=== PATIENT | male | born 1940 | race Caucasian/White ===

== ENCOUNTER 2017-10-06 23:36 | Inpatient (IN) | payer MEDICARE, OTHER ==
[2017-10-07] MEDS ORDERED: HEPARIN SODIUM,PORCINE 5,000 UNIT/ML 1 ML VIAL IV ONE (00:04)
[2017-10-07] MEDS ORDERED: HEPARIN SOD,PORK IN 0.45% NACL 25,000 UNIT in 0.45% NACL 1 500ML.BAG IV SCH (00:15)
[2017-10-07 00:32] LABS: Basophils % (A) 0 %; Eosinophils % (A) 0 %; HCT 46.7 % (39.0-53.0); HGB 15.6 gm/dL (13.0-17.5); Lymphocytes # (A) 2.4 k/uL (1.0-4.8); Lymphocytes % (A) 14 %; MCH 30.9 pg (25.0-35.0); MCHC 33.4 g/dL (31.0-37.0); MCV 92.4 fL (80.0-100.0); Mean Platelet Volume 7.1; Monocytes # (A) 1.1 k/uL (0-1.0); Monocytes % (A) 7 %; Neutrophils # (A) 12.8 k/uL (1.3-7.7); Neutrophils % (A) 77 %; Platelet Count 226 k/uL (150-450); RBC 5.06 m/uL (4.30-5.90); RDW 14.1 % (11.5-15.5); WBC 16.6 k/uL (3.8-10.6)
[2017-10-07 00:48] LABS: Partial Thromboplastin Time 22.6 sec (22.0-30.0); Prothrombin Time 10.1 sec (9.0-12.0)
[2017-10-07 00:53] LABS: Albumin 4.1 g/dL (3.5-5.0); Magnesium 1.8 mg/dL (1.6-2.3); Potassium 4.1 mmol/L (3.5-5.1); Total Bilirubin 0.4 mg/dL (0.2-1.3); Total Protein 6.7 g/dL (6.3-8.2)
[2017-10-07 01:02] LABS: Theophylline 31.7 ug/mL
[2017-10-07] MEDS: DILTIAZEM 50 MG in SODIUM CHLORIDE 0.9% 40 ML IV SCH ×4 (01:03→12:58)
[2017-10-07 01:22] LABS: Troponin I 0.07 ng/mL (0.000-0.034)
[2017-10-07] MEDS ORDERED: NALOXONE 0.4 MG/ML 1 ML VIAL IV PRN (01:28)
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
[2017-10-07] MEDS ORDERED: HYDROcodone/APAP 10-325MG 1 EACH TAB PO PRN (02:15)
[2017-10-07 02:35] VITALS: BMI 30.4
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
[2017-10-07 05:45] LABS: Glucose,Whole Blood 125 mg/dL (75-99)
[2017-10-07 06:46] LABS: ALT 36 U/L (21-72); AST 28 U/L (17-59); Albumin 3.5 g/dL (3.5-5.0); Alkaline Phosphatase 58 U/L (38-126); Anion Gap 3 mmol/L; Blood Urea Nitrogen 24 mg/dL (9-20); Calcium 9.4 mg/dL (8.4-10.2); Carbon Dioxide 27 mmol/L (22-30); Chloride 108 mmol/L (98-107); Glucose 110 mg/dL (74-99); Sodium 138 mmol/L (137-145); Total Bilirubin 0.5 mg/dL (0.2-1.3); Total Protein 5.8 g/dL (6.3-8.2)
[2017-10-07 06:47] LABS: Theophylline 19.9 ug/mL
[2017-10-07 07:02] LABS: Creatine Kinase MB 5.6 ng/mL (0.0-2.4)
[2017-10-07 07:03] LABS: Troponin I 0.08 ng/mL (0.000-0.034)
[2017-10-07] MEDS: HEPARIN SODIUM,PORCINE 5,000 UNIT/ML 1 ML VIAL IV PRN ×2 (07:56→15:33)
[2017-10-07] MEDS: FAMOTIDINE 20 MG TAB PO SCH ×2 (07:57→19:42)
[2017-10-07] MEDS: DOXYCYCLINE MONOHYDRATE 100 MG CAPSULE PO SCH ×2 (07:57→19:42)
[2017-10-07] MEDS: SENNOSIDES-DOCUSATE SODIUM 1 EACH TAB PO SCH ×2 (07:57→19:43)
[2017-10-07] MEDS: TAMSULOSIN 0.4 MG CAP.ER.24H PO SCH (07:57)
[2017-10-07] MEDS ORDERED: predniSONE 10 MG TAB PO SCH (09:00)
[2017-10-07 10:15] LABS: Appearance,Urine Clear (Clear); Bilirubin,Urine Negative (Negative); Blood,Urine Negative (Negative); Color,Urine Yellow; Glucose,Urine (UA) Negative (Negative); Ketones,Urine Negative (Negative); Leukocyte Esterase,Urine Negative (Negative); Nitrite,Urine Negative (Negative); PH, Urine 5.5 (5.0-8.0); Protein,Urine Negative (Negative); Specific Gravity,Urine 1.021 (1.001-1.035); Urobilinogen,Urine <2.0 mg/dL (<2.0)
[2017-10-07] MEDS ORDERED: ALBUTEROL NEBULIZED 2.5 MG/3 ML INHALATION PRN (10:44)
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
[2017-10-07] MEDS: IPRATROPIUM-ALBUTEROL 3 ML NEB INHALATION SCH ×3 (11:35→19:23)
[2017-10-07 11:54] LABS: Glucose,Whole Blood 165 mg/dL (75-99)
[2017-10-07 12:37] LABS: Creatine Kinase MB 5.3 ng/mL (0.0-2.4); Troponin I 0.063 ng/mL (0.000-0.034)
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
--- NOTE | 2017-10-07 12:57 | ECHOF ---
Referral Reason:Afib w RVr MEASUREMENTS -------- HEIGHT: 185.4 cm WEIGHT: 101.6 kg BP: IVSd: 1.1 cm (0.6 - 1.1) LVIDd: 4.3 cm (3.9 - 5.3) LVPWd: 1.2 cm (0.6 - 1.1) EDV(Teich): 83 ml IVSs: 1.2 cm LVIDs: 2.9 cm LVPWs: 1.1 cm %IVS Thck: 11 % ESV(Teich): 33 ml EF(Teich): 60 % %FS: 32 % SV(Teich): 50 ml LA Diam: 3.3 cm (2.7 - 3.8) RVIDd: 3.4 cm (< 3.3) Ao Diam: 3.6 cm (2.0 - 3.7) LA Diam: 3.5 cm (2.7 - 3.8) EPSS: 0.8 cm MV E Alexis: 0.82 m/s MV DecT: 100 ms MV Dec [place]: 8.3 m/s MV A Alexis: 0.55 m/s MV E/A Ratio: 1.50 MV PHT: 29 ms AV Vmax: 1.36 m/s AV maxP.42 mmHg TR Vmax: 1.74 m/s TR maxP.09 mmHg RAP: 5.00 mmHg RVSP: 17.09 mmHg MV EF SLOPE: 278.49 mm/s (70 - 150) MV EXCURSION: 30.37 mm (> 18.000) FINDINGS -------- Undetermined rhythm. LV size, wall thickness and systolic function are normal, with an EF greater than 55%. The left maryellen tricular size is normal. The right ventricle is moderately enlarged. The left atrial size is normal. The right atrial size is normal. 5.0mg OF [place] UTLIZED: 2 OR MORE WALL SEGMENTS NOT VISUALIZED. Mild mitral annular calcification present. Mild mitral regurgitation is present. Trace tricuspid regurgitation present. There is no evidence of pulmonary hypertension. The right ventricular systolic pressure, as measured by Doppler, is 17.09mmHg. The pulmonic valve was not well visualized. The aortic root size is normal. There is no pericardial effusion. CONCLUSIONS -------- 1. LV size, wall thickness and systolic function are normal, with an EF greater than 55%. 2. The left ventricular size is normal. 3. The right ventricle is moderately enlarged. 4. The left atrial size is normal. 5. The right atrial size is normal. 6. 5.0mg OF [place] UTLIZED: 2 OR MORE WALL SEGMENTS NOT VISUALIZED. 7. Mild mitral annular calcification present. 8. Mild mitral regurgitation is present. 9. Trace tricuspid regurgitation present. 10. There is no evidence of pulmonary hypertension. 11. The right ventricular systolic pressure, as measured by Doppler, is 17.09mmHg. 12. The pulmonic valve was not well visualized. 13. The aortic root size is normal. 14. There is no pericardial effusion. BUSINESS PROCESS ARCHITECT: Kisha Parry RDCS
[2017-10-07] MEDS: MORPHINE SULFATE ER 30 MG TABLET PO SCH ×2 (13:01→19:42)
[2017-10-07] MEDS ORDERED: PROPAFENONE 150 MG TAB PO STA (14:42)
[2017-10-07] MEDS: DILTIAZEM ORAL 60 MG TAB PO SCH ×2 (15:35→21:15)
--- NOTE | 2017-10-07 16:02 | P.PN ---
Progress Note - Text Progress Note Date: 10/07/17 Hospitalist Interval Note Patient seen and examined at bedside. Breathing much better. No chest pain. Was unable to feel palpitations yesterday. Had a sore throat and neck yesterday but this resolved today. Vital signs reviewed General: non toxic, no distress, appears at stated age Derm: warm, dry Head: atraumatic, normocephalic, symmetric Eyes: EOMI, no lid lag, anicteric sclera Mouth: no lip lesion, mucus membranes moist Cardiovascular: S1-S2 regular, no murmur, positive posterior tibial pulse bilateral, Lungs: Faint expiratory wheezing bilateral, decreased air intake, no rhonchi, no rales , no accessory muscle use Abdominal: soft, nontender to palpation, no guarding, no appreciable organomegaly Ext: no gross muscle atrophy, no edema, no contractures Neuro: CN II-XI grossly intact, no focal neuro deficits Psych: Alert, oriented, appropriate affect Assessment/Plan: Newly discovered Atrial fibrillation with rapid ventricular response -Currently on Cardizem drip and heparin -Anticipate transition to novel anticoagulant cardiology is in agreement -Just had to go up on Cardizem drip but hope to transition to oral Cardizem today which heart rate is controlled -Cardiology consultation -Echocardiogram Acute exacerbation of COPD with elevated theophylline level -Oral steroids, doxycycline, bronchodilators -Consult pulmonary -Hold theophylline Type 2 diabetes mellitus -Diet controlled at home -We will check BMP in a.m. and if sugars are elevated start sliding scale insulin -Hemoglobin A1c GERD -Pepcid Dyslipidemia -Lipitor This is an update note for patient , for full note on 10/07 see H and P by Dr. Galloway. There is no charge associated with this note.
[2017-10-07 17:01] LABS: Glucose,Whole Blood 206 mg/dL (75-99)
[2017-10-07] MEDS: INSULIN ASPART 100 UNIT/ML 1 ML 10 ML VIAL SQ SCH ×2 (17:42→20:38)
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
[2017-10-07] MEDS: SYMBICORT 160-4.5 MCG INHALER INHALATION SCH (19:58)
[2017-10-07 20:34] LABS: Glucose,Whole Blood 78 mg/dL (75-99)
[2017-10-07] MEDS: APIXABAN 5 MG TAB PO SCH (20:56)
[2017-10-07] MEDS ORDERED: ATORVASTATIN 40 MG TAB PO SCH (21:00)
[2017-10-07 22:51] LABS: Hemoglobin A1C 6.5 % (4.0-6.0)
[2017-10-07 23:32] VITALS: RESP 16
[2017-10-08 06:12] LABS: Glucose,Whole Blood 109 mg/dL (75-99)
[2017-10-08] MEDS: INSULIN ASPART 100 UNIT/ML 1 ML 10 ML VIAL SQ SCH (06:14)
[2017-10-08 06:25] LABS: Basophils % (A) 0 %; Eosinophils # (A) 0.1 k/uL (0-0.7); Eosinophils % (A) 1 %; HCT 45.9 % (39.0-53.0); HGB 14.9 gm/dL (13.0-17.5); Lymphocytes # (A) 2.7 k/uL (1.0-4.8); Lymphocytes % (A) 28 %; MCH 30.5 pg (25.0-35.0); MCHC 32.6 g/dL (31.0-37.0); MCV 93.6 fL (80.0-100.0); Monocytes # (A) 0.9 k/uL (0-1.0); Monocytes % (A) 9 %; Neutrophils # (A) 5.8 k/uL (1.3-7.7); Neutrophils % (A) 60 %; Platelet Count 229 k/uL (150-450); RDW 14.3 % (11.5-15.5); WBC 9.7 k/uL (3.8-10.6)
[2017-10-08 06:39] LABS: Albumin 3.3 g/dL (3.5-5.0); Calcium 9.7 mg/dL (8.4-10.2); Potassium 4.5 mmol/L (3.5-5.1); Theophylline 3.3 ug/mL; Total Bilirubin 0.3 mg/dL (0.2-1.3); Total Protein 5.7 g/dL (6.3-8.2)
[2017-10-08] MEDS: DILTIAZEM ORAL 60 MG TAB PO SCH (07:44)
[2017-10-08] MEDS: APIXABAN 5 MG TAB PO SCH (07:44)
[2017-10-08] MEDS: SENNOSIDES-DOCUSATE SODIUM 1 EACH TAB PO SCH (07:44)
[2017-10-08] MEDS: DOXYCYCLINE MONOHYDRATE 100 MG CAPSULE PO SCH (07:45)
[2017-10-08] MEDS: FAMOTIDINE 20 MG TAB PO SCH (07:45)
[2017-10-08] MEDS: MORPHINE SULFATE ER 30 MG TABLET PO SCH (07:45)
[2017-10-08] MEDS: TAMSULOSIN 0.4 MG CAP.ER.24H PO SCH (07:46)
[2017-10-08] MEDS: IPRATROPIUM-ALBUTEROL 3 ML NEB INHALATION SCH ×2 (08:03→11:51)
[2017-10-08] MEDS: SYMBICORT 160-4.5 MCG INHALER INHALATION SCH (08:04)
[2017-10-08] MEDS ORDERED: predniSONE 20 MG TAB PO SCH (09:00)
[2017-10-08] MEDS ORDERED: FLECAINIDE 50 MG TAB PO SCH (09:15)
[2017-10-08] MEDS ORDERED: DILTIAZEM CD 120 MG CAP.ER.24H PO STA (09:54)
[2017-10-08 11:38] VITALS: BP 126/66; TEMP 98
[2017-10-08 11:40] LABS: Glucose,Whole Blood 163 mg/dL (75-99)
[2017-10-08 11:57] VITALS: PULSE 88
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
--- NOTE | 2017-10-08 20:25 | P.DS ---
Providers Date of admission: 10/07/17 01:32 Expected date of discharge: 10/08/17 Attending physician: Stas Galloway MD Consults: 10/07/17 01:31 Consult Physician Urgent Consulting Provider: [facility] Consult Reason/Comments: new afib with RVR Do you want consulting provider notified?: Yes, Notify in am 10/07/17 03:19 Consult Physician Routine Consulting Provider: Lasha Vázquez Consult Reason/Comments: COPD/ theophyline toxicity Do you want consulting provider notified?: Yes, Notify in am Primary care physician: Stated None Hospital Course: Discharge Diagnosis: Newly discovered atrial fibrillation with rapid ventricular response-currently in normal sinus rhythm Acute exacerbation of COPD Theophylline toxicity Type 2 diabetes mellitus, diet controlled GERD Dyslipidemia Hospital Course: is a 77-year-old male for history of COPD, GERD, and dyslipidemia who presented as a transfer from [facility] for evaluation of A. fib with RVR. He went to the [place] to ref[place] inhaler prescription was told that he had a fast heart rate and instructed to go to the ER. In [place] he was initially thought to have SVT and was given a dose of adenosine. It then appeared that he had A. fib with RVR. He was started on a Cardizem drip. It was noted that his theophylline level was supratherapeutic at 31.7. On arrival here he was noted to have an elevated white blood cell count and elevated heart rate of 140s. His Cardizem drip was maintained and he was started on a heparin drip. He had a slightly elevated troponin which was felt to be due to stress-induced ischemia. He was admitted to the selective care unit when seen by cardiology. His Cardizem drip was converted to oral Cardizem and he received 1 dose of Rythmol. He then converted to normal sinus rhythm. His heparin drip was transitioned to Eliquis 5 mg twice daily. By the morning of 10/08 his A. fib with RVR was completely resolved. His shortness of breath was at baseline for him. He was determined stable for discharge by cardiology. He was also seen by pulmonary here and they recommended decreasing his theophylline to 200 mg daily due to his supratherapeutic level. He has an appointment with the [place] in the morning and refer to get his medications from them. I have sent over prescriptions to nikole [facility] for his Cardizem and prednisone. I have asked him to [facility] his flecainide, Eiquis, new theophylline prescription, and cardizem prescriptions. He has already received doses of these medications today prior to discharge. Patient seen and examined at bedside. No chest pain, shortness of breath, or throat pain. Feeling much better. Requesting to go home. Vital signs reviewed and stable. General: non toxic, no distress, appears at stated age Derm: warm, dry Head: atraumatic, normocephalic, symmetric Eyes: EOMI, no lid lag, anicteric sclera Mouth: no lip lesion, mucus membranes moist Cardiovascular: S1S2 reg, no murmur, positive posterior tibial pulse bilateral, Lungs: Faint Wheezing bilateral bases, no rhonchi, no rales , no accessory muscle use Abdominal: soft, nontender to palpation, no guarding, no appreciable organomegaly Ext: no gross muscle atrophy, no edema, no contractures Neuro: CN II-XI grossly intact, no focal neuro deficits Psych: Alert, oriented, appropriate affect A total of 35 minutes of time were spent preparing this complex discharge summary . Pertinent Studies: Echocardiogram ejection fraction 55% Patient Condition at Discharge: Stable Plan - Discharge Summary New Discharge Prescriptions: New Apixaban [Eliquis] 5 mg PO BID tab Diltiazem Cd [Cardizem Cd] 180 mg PO DAILY #15 cap.er.24h Flecainide [Tambocor] 50 mg PO Q12HR tab predniSONE 40 mg PO DAILY #10 tab Theophylline 24 Hour [Deni-24] 200 mg PO DAILY #30 cap.er.24h Continue Tamsulosin HCl [Flomax] 0.4 mg PO DAILY Ergocalciferol (Vitamin D2) [Vitamin D2] 50,000 unit PO DAILY Famotidine [Pepcid] 20 mg PO BID HYDROcodone/APAP 10-325MG [[place] 10-325] 1 tab PO Q6HR PRN PRN Reason: Pain Doxycycline Hyclate [Vibramycin] 100 mg PO BID Albuterol Sulfate [Proair Hfa] 2 puff INHALATION RT-QID PRN PRN Reason: Shortness Of Breath Tiotropium Br/Olodaterol HCl [Stiolto Respimat Inhal [place]] 2 spray INHALATION RT-DAILY Morphine Sulfate ER [Ms Contin] 60 mg PO HS Morphine Sulfate ER [Ms Contin] 15 mg PO QAM Mometasone Furoate [Asmanex Hfa] 1 puff INHALATION RT-HS Simvastatin 40 mg PO HS Docusate [Colace] 100 mg PO DAILY Discontinued predniSONE 10 mg PO BID Theophylline 24 Hour [Deni-24] 400 mg PO DAILY Discharge Medication List Albuterol Sulfate [Proair Hfa] 2 puff INHALATION RT-QID PRN 10/07/17 [History] Docusate [Colace] 100 mg PO DAILY 10/07/17 [History] Doxycycline Hyclate [Vibramycin] 100 mg PO BID 10/07/17 [History] Ergocalciferol (Vitamin D2) [Vitamin D2] 50,000 unit PO DAILY 10/07/17 [History] Famotidine [Pepcid] 20 mg PO BID 10/07/17 [History] HYDROcodone/APAP 10-325MG [[place] 10-325] 1 tab PO Q6HR PRN 10/07/17 [History] Mometasone Furoate [Asmanex Hfa] 1 puff INHALATION RT-HS 10/07/17 [History] Morphine Sulfate ER [Ms Contin] 15 mg PO QAM 10/07/17 [History] Morphine Sulfate ER [Ms Contin] 60 mg PO HS 10/07/17 [History] Simvastatin 40 mg PO HS 10/07/17 [History] Tamsulosin HCl [Flomax] 0.4 mg PO DAILY 10/07/17 [History] Tiotropium Br/Olodaterol HCl [Stiolto Respimat Inhal [place]] 2 spray INHALATION RT-DAILY 10/07/17 [History] Apixaban [Eliquis] 5 mg PO BID tab 10/08/17 [Rx] Diltiazem Cd [Cardizem Cd] 180 mg PO DAILY #15 cap.er.24h 10/08/17 [Rx] Flecainide [Tambocor] 50 mg PO Q12HR tab 10/08/17 [Rx] Theophylline 24 Hour [Deni-24] 200 mg PO DAILY #30 cap.er.24h 10/08/17 [Rx] predniSONE 40 mg PO DAILY #10 tab 10/08/17 [Rx] Follow up Appointment(s)/Referral(s): None,Stated [Primary Care Provider] - 1-2 days Patient Instructions/Handouts: Theophylline (By mouth), Apixaban (By mouth), A- fib (Atrial Fibrillation) (GEN), COPD (Chronic Obstructive Pulmonary Disease) ( GEN), Leukocytosis (GEN) Activity/Diet/Wound Care/Special Instructions: [facility] [place] He will need the following new prescriptions. Flecainide 50 mg twice daily, Cardizem CD 180 mg daily, theophylline 200 mg daily, and Eliquis 5mg twice daily. During you hospitalization you developed atrial fibrillation with rapid ventricular response. There are also found have acute exacerbation of COPD. I would recommend getting home health care set up through the [facility] for frequent monitoring at this point in time. Heart healthy diet, activity as tolerated Discharge Disposition: HOME SELF-CARE
--- NOTE | 2017-10-12 11:28 | CDI ---
Last Revision, January 2017 Documentation Clarification Form Date: 10/12/17 From: Leatha Tawanda Erika Devlin, Dry Cell Assembly Supervisor Hours-8:30 am & 5 pm -FMRN: [id number] Admit Date: 10/07/2017 1:32:00 AM Patient Name: Mike Sampson Visit Number: [id number] Discharge Date: 10/08/17 ATTENTION: The Clinical Documentation Specialists (CDI) and [facility] Coding Staff appreciate your assistance in clarifying documentation. Please respond to the clarification below the line at the bottom and electronically sign. The CDI & [facility] Coding staff will review the response and follow-up if needed. Please note: Queries are made part of the Legal Health Record. If you have any questions, please contact the author of this message via ITS. Dr. ENCISO, Liliam Francisco MD New onset of atrial fibrillation is documented in the ED note, H&P, consult, PNs & DS. History/Risk Factors: COPD, GERD, hyperlipidemia EKG/telemetry: Atrial fibrillation with rapid ventricular response Treatment: Diltiazem drip, heparin IV drip at discharge transitioned to Eliquis 5 mg BID In your professional opinion, can you please clarify the type of atrial fibrillation, if known? Chronic/Permanent Paroxysmal Persistent Other, please specify Unable to determine Please continue to document in your progress notes and discharge summary in order to capture severity of illness and risk of mortality. Include clinical findings that support your diagnosis. MTDD
--- NOTE | 2017-10-12 11:31 | CDI ---
Last Revision, January 2017 Documentation Clarification Form Date: 10/12/17 From: Leatha Tawanda Erika Devlin, Correctional Security Officer Hours-8:30 am & 5 pm [place] Admit Date: 10/07/2017 1:32:00 AM Patient Name: Mike Sampson Visit Number: [id number] Discharge Date: 10/08/17 ATTENTION: The Clinical Documentation Specialists (CDI) and [facility] Coding Staff appreciate your assistance in clarifying documentation. Please respond to the clarification below the line at the bottom and electronically sign. The CDI & [facility] Coding staff will review the response and follow-up if needed. Please note: Queries are made part of the Legal Health Record. If you have any questions, please contact the author of this message via ITS. Liliam Mosquera MD Atrial Flutter is documented in your consult. History/Risk Factors: COPD, GERD, hyperlipidemia EKG/telemetry: Atrial fibrillation with rapid ventricular response Treatment: Diltiazem drip, heparin IV drip at discharge transitioned to Eliquis 5 mg BID In your professional opinion, in order to capture the severity of condition; can you please clarify the type of atrial flutter if known? Typical/Type I Atypical/Type II Other, please specify Unable to determine Please continue to document in your progress notes and discharge summary in order to capture severity of illness and risk of mortality. Include clinical findings that support your diagnosis. MTDD
[2017-10-13] MEDS ORDERED: ERGOCALCIFEROL 50,000 UNIT CAP PO SCH (09:00)
== END 2017-10-08 12:58 | disposition home or self-care (01) | DRG 309 ==
LOC: EC 23:36 → 6SEL 10-07 01:32
PROVIDERS: ADMIT Family Medicine; ATTEND Family Medicine
DX: I48.91 Unspecified atrial fibrillation (principal); J44.1 Chronic obstructive pulmonary disease with (acute) exacerbation; I24.8 Other forms of acute ischemic heart disease; I48.92 Unspecified atrial flutter; T48.6X5A Adverse effect of antiasthmatics, initial encounter; E11.9 Type 2 diabetes mellitus without complications; E78.5 Hyperlipidemia, unspecified; K21.9 Gastro-esophageal reflux disease without esophagitis; G89.29 Other chronic pain; R10.2 Pelvic and perineal pain; T59.811A Toxic effect of smoke, accidental (unintentional), initial encounter; N42.9 Disorder of prostate, unspecified; F17.210 Nicotine dependence, cigarettes, uncomplicated; Z71.6 Tobacco abuse counseling; Z79.899 Other long term (current) drug therapy; Z79.891 Long term (current) use of opiate analgesic; Z79.52 Long term (current) use of systemic steroids; Z91.048 Other nonmedicinal substance allergy status
CPT/HCPCS: 36415; 71046; 80053; 80198; 81003; 82550; 82553; 83036; 83735; 83880; 84443; 84484; 85025; 85610; 85730; 87040; 87086; 93005; 93306; 94640; 96365; 96368; 96376; 99285

== ENCOUNTER 2018-10-20 20:03 | Inpatient (IN) | payer MEDICARE ==
[2018-10-20 22:01] LABS: Glucose,Whole Blood 163 mg/dL (75-99)
[2018-10-20] MEDS: IPRATROPIUM-ALBUTEROL 3 ML NEB INHALATION SCH (22:21)
[2018-10-20] MEDS: IPRATROPIUM-ALBUTEROL 3 ML NEB INHALATION PRN (22:30)
[2018-10-21] MEDS: methylPREDNISolone SOD SUCCI 125 MG/2 ML VIAL IV SCH ×4 (00:26→23:08)
[2018-10-21] MEDS: IPRATROPIUM-ALBUTEROL 3 ML NEB INHALATION SCH ×7 (00:40→23:23)
[2018-10-21] MEDS: SODIUM CHLORIDE 0.9% 1,000 ML IV SCH ×2 (00:45→12:42)
[2018-10-21 06:50] LABS: Glucose,Whole Blood 173 mg/dL (75-99)
[2018-10-21] MEDS: metFORMIN 500 MG TAB PO SCH ×2 (06:57→17:29)
[2018-10-21 07:42] LABS: HCT 44.4 % (39.0-53.0); HGB 14.6 gm/dL (13.0-17.5); MCH 29.7 pg (25.0-35.0); MCHC 32.8 g/dL (31.0-37.0); MCV 90.4 fL (80.0-100.0); Mean Platelet Volume 7.4; Platelet Count 252 k/uL (150-450); RBC 4.91 m/uL (4.30-5.90); RDW 14.4 % (11.5-15.5); WBC 14.9 k/uL (3.8-10.6)
[2018-10-21] MEDS: THEOPHYLLINE 24 HOUR 400 MG CAP.ER.24H PO SCH (08:00)
[2018-10-21] MEDS: POTASSIUM CHLORIDE ER 10 MEQ TAB.ER.PRT PO SCH (08:00)
[2018-10-21] MEDS: MORPHINE SULFATE ER 15 MG TABLET PO SCH (08:01)
[2018-10-21] MEDS: MIDODRINE 5 MG TAB PO SCH ×2 (08:01→17:29)
[2018-10-21] MEDS: METOPROLOL TARTRATE 50 MG TAB PO SCH ×2 (08:01→21:20)
[2018-10-21] MEDS: TAMSULOSIN 0.4 MG CAP.ER.24H PO SCH (08:01)
[2018-10-21] MEDS: DOXYCYCLINE 100 MG in SODIUM CHLORIDE 0.9% 100 ML IVPB SCH ×2 (08:16→21:21)
[2018-10-21 08:22] LABS: ALT 20 U/L (21-72); AST 20 U/L (17-59); African American GFR (CKD) >90 (>60 ml/min/1.73 sqM); Alkaline Phosphatase 90 U/L (38-126); Anion Gap 13 mmol/L; Blood Urea Nitrogen 19 mg/dL (9-20); Calcium 9.8 mg/dL (8.4-10.2); Carbon Dioxide 25 mmol/L (22-30); Chloride 101 mmol/L (98-107); Glucose 175 mg/dL (74-99); Potassium 4.3 mmol/L (3.5-5.1); Sodium 139 mmol/L (137-145); Total Bilirubin 0.6 mg/dL (0.2-1.3); Total Protein 7.2 g/dL (6.3-8.2)
[2018-10-21] MEDS ORDERED: metFORMIN 500 MG TAB PO SCH (09:00)
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
[2018-10-21] MEDS: IPRATROPIUM-ALBUTEROL 3 ML NEB INHALATION PRN (10:30)
--- NOTE | 2018-10-21 11:54 | P.CNPUL ---
History of Present Illness Consult date: 10/21/18 Requesting physician: Adam Mg Reason for consult: dyspnea, COPD Chief complaint: Acute exacerbation of COPD History of present illness: This is a 78-year-old white male patient who follows with the [facility], with past medical history of advanced COPD, oxygen dependent, usually on 3 L of oxygen per nasal cannula, right and ongoing history of smoking, currently down to 1 pack a day from 2 packs a day for 63 years, history of atrial fibrillation, currently in sinus rhythm, GERD/reflux, hyperlipidemia, prostate disorder, diabetes mellitus, who resides in an adult foster care facility, who came into the emergency department at [facility] for evaluation of increasing shortness of breath, denied any cough, denied any fever or chills, denied any chest pain, or hemoptysis. Patient states he was previously in hospice for 8 months however recently was discharged from hospice, he was then placed in the adult foster fpc where he resided with several other residents and was not happy with the conditions there. He then decided to leave there and he had stayed in his car for over 24 hours before he came into the emergency department. From [facility] she was transferred to [facility], chest x-ray this morning shows chronic parenchymal changes bilaterally without any suspicious new focal airspace opacity, no pleural effusion or pneumothorax, blood fragments in the left upper chest stable from previous x-ray. Lab work this morning showed a white blood cell count of 14.9, hemoglobin of 14.6, electrolytes and renal profile within normal limits, proBNP was 714, patient is currently sinus rhythm on the monitor. His maintenance med ications include Singulair, and theophylline, I don't see any inhalers or nebulized treatments on his home med list although patient states he is on nebulized treatments which he has been compliant with. His goal exam reveals a overweight male, in mild to moderate amount of respiratory distress, patient has conversational dyspnea, lung sounds are tight and wheezy, patient is currently on 5 L of oxygen. we re consulted for elevation patient shortness of breath. We had previously seen the patient in consultation earlier this month, however patient did not follow-up in outpatient setting Review of Systems All systems: negative Constitutional: Denies chills, Denies fever Eyes: denies blurred vision, denies pain Ears, nose, mouth and throat: Denies headache, Denies sore throat Cardiovascular: Denies chest pain, Denies shortness of breath Respiratory: Reports dyspnea, Reports home oxygen, Reports respiratory infections, Reports wheezing, Denies cough Gastrointestinal: Denies abdominal pain, Denies diarrhea, Denies nausea, Denies vomiting Musculoskeletal: Denies myalgias Integumentary: Denies pruritus, Denies rash Neurological: Denies numbness, Denies weakness Psychiatric: Denies anxiety, Denies depression Endocrine: Denies fatigue, Denies weight change Past Medical History Past Medical History: COPD, GERD/Reflux, Hyperlipidemia, Prostate Disorder Additional Past Medical History / Comment(s): chronic pelvic pain History of Any Multi-Drug Resistant Organisms: None Reported Past Surgical History: No Surgical Hx Reported Past Anesthesia/Blood Transfusion Reactions: No Reported Reaction Past Psychological History: No Psychological Hx Reported Smoking Status: Current every day smoker Past Alcohol Use History: None Reported Past Drug Use History: None Reported Medications and Allergies Home Medications Medication Instructions Recorded Confirmed Type Morphine Sulfate ER [Ms Contin] 15 mg PO [facility] 10/07/17 10/20/18 History Morphine Sulfate ER [Ms Contin] 60 mg PO 10/07/17 10/20/18 History Tamsulosin HCl [Flomax] 0.4 mg PO DAILY 10/07/17 10/20/18 History Metoprolol Tartrate [Lopressor] 50 mg PO BID 10/20/18 10/20/18 History Midodrine [ProAmatine] 5 mg PO BID 10/20/18 10/20/18 History Montelukast [Singulair] 10 mg PO 10/20/18 10/20/18 History Potassium Chloride [K-Tab ER] 10 meq PO DAILY 10/20/18 10/20/18 History Theophylline 24 Hour [Deni-24] 800 mg PO DAILY 10/20/18 10/20/18 History metFORMIN HCL 500 mg PO BID 10/20/18 10/20/18 History Allergies Allergy/AdvReac Type Severity Reaction Status Date / Time mold Allergy Itching Verified 10/07/17 12:42 Physical Exam Vitals: Vital Signs Temp Pulse Pulse Resp BP Pulse Ox 10/21/18 11:14 97.8 F 64 20 102/51 97 10/21/18 10:44 68 10/21/18 10:30 68 10/21/18 07:53 98.1 F 78 18 141/72 96 10/21/18 07:46 72 10/21/18 07:34 68 10/21/18 04:56 64 10/21/18 04:43 60 10/21/18 04:00 77 21 134/62 94 L 10/21/18 00:53 68 10/21/18 00:40 65 94 L 10/21/18 00:00 98.5 F 69 20 122/65 95 10/20/18 22:32 72 10/20/18 22:21 70 10/20/18 21:31 99 F 70 20 146/65 97 Intake and Output 10/20/18 10/21/18 10/21/18 22:59 06:59 14:59 Output Total 300 500 Balance -300 -500 Output: Urine 300 500 Other: Weight 113.4 kg GENERAL EXAM: Alert, 78-year-old obese white male, on 5 L of oxygen, who has conversational dyspnea, comfortable in no apparent distress. HEAD: Normocephalic/atraumatic. EYES: Normal reaction of pupils, equal size. Conjunctiva pink, sclera white. NOSE: Clear with pink turbinates. THROAT: No erythema or exudates. NECK: No masses, no JVD, no thyroid enlargement, no adenopathy. CHEST: No chest wall deformity. Symmetrical expansion. LUNGS: Equal air entry with diffuse wheezes CVS: Regular rate and rhythm, normal S1 and S2, no gallops, no murmurs, no rubs ABDOMEN: Soft, nontender. No hepatosplenomegaly, normal bowel sounds, no guarding or rigidity. EXTREMITIES: No clubbing, mild edema in lower extremities, no cyanosis, 2+ pulses and upper and lower extremities. MUSCULOSKELETAL: Muscle strength and tone normal. SPINE: No scoliosis or deformity SKIN: No rashes CENTRAL NERVOUS SYSTEM: Alert and oriented -3. No focal deficits, tone is normal in all 4 extremities. PSYCHIATRIC: Alert and oriented -3. Appropriate affect. Intact judgment and insight. Results - Laboratory Findings CBC and BMP: 10/21/18 06:26 10/21/18 06:26 Abnormal lab findings: Abnormal Labs 10/20/18 10/21/18 10/21/18 22:00 06:26 06:26 WBC 14.9 H Glucose 175 H POC Glucose (mg/dL) 163 H ALT 20 L 10/21/18 06:48 WBC Glucose POC Glucose (mg/dL) 173 H ALT - Diagnostic Findings Chest x-ray: report reviewed, image reviewed Assessment and Plan Plan: Assessment: #1. Acute exacerbation of COPD, chest x-ray was negative for any acute pulmonary findings #2. History of A. fib, currently in sinus rhythm, not on any anticoagulation #3. History of COPD, severity of which is unknown, oxygen dependent, patient failed to follow-up in outpatient setting #4. Diabetes mellitus type 2 #5. Chronic and ongoing nicotine dependence, currently down to 1 pack a day, previously smoked 2 packs a day for 63 years #6. Obesity #7. Diabetes mellitus Plan: We'll continue with current medical treatment, will add Pulmicort and Perforomist, continue DuoNeb [id number], continue IV Solu-Medrol, doxycycline, chest x-ray has been reviewed showing no acute findings, we'll treat the patient for COPD exacerbation, nicotine cessation counseling was done. We'll continue to follow and make further recommendations, patient is currently in sinus rhythm. Will likely need to consult social work as the patient decided to leave the assisted care facility and was living in his car for 24 hours I performed a history & physical examination of the patient and discussed their management with my nurse practitioner, Yanci Arteaga. I reviewed the nurse practitioner's note and agree with the documented findings and plan of care. Lung sounds are positive for diffuse wheezes. The findings and the impression was discussed with the patient. I attest to the documentation by the nurse practitioner. Time with Patient: Greater than 30
[2018-10-21] MEDS: ALPRAZolam 0.25 MG TAB PO PRN ×2 (12:07→21:20)
[2018-10-21 12:15] LABS: Glucose,Whole Blood 182 mg/dL (75-99)
--- NOTE | 2018-10-21 16:31 | P.HPIM ---
History of Present Illness H&P Date: 10/21/18 Chief Complaint: Shortness of breath Patient is a 78 old male with a known history of advanced COPD, hyperlipidemia, GERD and nicotine addiction, chronic hypoxic respiratory failure on home oxygen at 3 L nasal cannula was initially presents to [facility] due to worsen ing shortness of breath. Patient does have chronic cough without any sputum production. Denied any fever or chills. No complaints of chest pain. Patient states he was previously in hospice for 8 months however recently was discharged from hospice, he was then placed in the adult foster correction where he resided with several other residents and was not happy with the conditions there. He then decided to leave there and he had stayed in his car for over 24 hours before he came into the emergency department. Patient was transferred to [facility] for further evaluation by pulmonary. Patient has not seen any physician recently. Chest x-ray showed chronic parenchymal changes bilaterally without any infiltrate. BNP 714 Review of Systems Constitutional: Patient denies any fever or chills . No generalized weakness or weight loss. Abdomen: Patient denied nausea vomiting and diarrhea and abdominal pain. Cardiovascular: Patient denies any chest pain or short of breath no palpitations. Respiratory: . Cough without sputum production. Shortness of breath. Neurologic: Patient denied any numbness or tingling headache. Musculoskeletal: Patient denies any complaints of joint swelling or deformity. Skin: Negative Psychiatric: Negative Endocrine: No heat or cold intolerance. No recent weight gain. Genitourinary: No dysuria or hematuria. All other 14 point ROS negative except the above Past Medical History Past Medical History: COPD, GERD/Reflux, Hyperlipidemia, Prostate Disorder Additional Past Medical History / Comment(s): chronic pelvic pain History of Any Multi-Drug Resistant Organisms: None Reported Past Surgical History: No Surgical Hx Reported Past Anesthesia/Blood Transfusion Reactions: No Reported Reaction Past Psychological History: No Psychological Hx Reported Smoking Status: Current every day smoker Past Alcohol Use History: None Reported Past Drug Use History: None Reported Medications and Allergies Home Medications Medication Instructions Recorded Confirmed Type Morphine Sulfate ER [Ms Contin] 15 mg PO QAM 10/07/17 10/20/18 History Morphine Sulfate ER [Ms Contin] 60 mg PO HS 10/07/17 10/20/18 History Tamsulosin HCl [Flomax] 0.4 mg PO DAILY 10/07/17 10/20/18 History Metoprolol Tartrate [Lopressor] 50 mg PO BID 10/20/18 10/20/18 History Midodrine [ProAmatine] 5 mg PO BID 10/20/18 10/20/18 History Montelukast [Singulair] 10 mg PO HS 10/20/18 10/20/18 History Potassium Chloride [K-Tab ER] 10 meq PO DAILY 10/20/18 10/20/18 History Theophylline 24 Hour [Deni-24] 800 mg PO DAILY 10/20/18 10/20/18 History metFORMIN HCL 500 mg PO BID 10/20/18 10/20/18 History Allergies Allergy/AdvReac Type Severity Reaction Status Date / Time mold Allergy Itching Verified 10/07/17 12:42 Physical Exam Vitals: Vital Signs Temp Pulse Pulse Resp BP Pulse Ox 10/21/18 11:14 97.8 F 64 20 102/51 97 10/21/18 10:44 68 10/21/18 10:30 68 10/21/18 07:53 98.1 F 78 18 141/72 96 10/21/18 07:46 72 10/21/18 07:34 68 10/21/18 04:56 64 10/21/18 04:43 60 10/21/18 04:00 77 21 134/62 94 L 10/21/18 00:53 68 10/21/18 00:40 65 94 L 10/21/18 00:00 98.5 F 69 20 122/65 95 10/20/18 22:32 72 10/20/18 22:21 70 10/20/18 21:31 99 F 70 20 146/65 97 Intake and Output 10/20/18 10/21/18 10/21/18 22:59 06:59 14:59 Output Total 300 500 Balance -300 -500 Output: Urine 300 500 Other: Weight 113.4 kg PHYSICAL EXAMINATION: Patient is lying in the bed comfortably, mild distress, awake alert and oriented.. HEENT: Normocephalic. Neck is supple. Pupils reactive. Nostrils clear. Oral cavity is moist. Ears reveal no drainage. Neck reveals no JVD, carotid bruits, or thyromegaly. CHEST EXAMINATION: Trachea is central. Symmetrical expansion. Diminished air entry and diffuse wheezing. CARDIAC: Normal S1, S2 with no gallops. No murmurs ABDOMEN: Soft. Bowel sounds normal. No organomegaly. No abdominal bruits. Extremities: reveal no edema. No clubbing or cyanosis Neurologically awake, alert, oriented x3 with well-coordinated movements. No focal deficits noted Skin: No rash or skin lesions. Psychiatric: Coperative. Nonsuicidal Musculoskeletal: No joint swelling or deformity. Normal range of motion. Results CBC & Chem 7: 10/21/18 06:26 10/21/18 06:26 Labs: Abnormal Lab Results - Last 24 Hours (Table) 10/20/18 10/21/18 10/21/18 Range/Units 22:00 06:26 06:26 WBC 14.9 H (3.8-10.6) k/uL Glucose 175 H (74-99) mg/dL POC Glucose (mg/dL) 163 H (75-99) mg/dL ALT 20 L (21-72) U/L 10/21/18 Range/Units 06:48 WBC (3.8-10.6) k/uL Glucose (74-99) mg/dL POC Glucose (mg/dL) 173 H (75-99) mg/dL ALT (21-72) U/L Thrombosis Risk Factor Assmnt - DVT/VTE Prophylaxis DVT/VTE Prophylaxis: Pharmacologic Prophylaxis ordered - Choose All That Apply Each Risk Factor Represents 3 Points: Age 75 years or older Thrombosis Risk Factor Assessment Total Risk Factor Score: 3 Thrombosis Risk Factor Assessment Level: Moderate Risk Assessment and Plan Assessment: Acute exacerbation of COPD Advanced COPD on home oxygen dependent. Was on hospice care previously Chronic hypoxic respiratory failure on home oxygen Diabetes type 2 [id number] Atrial fibrillation paroxysmal not on anticoagulation Ongoing nicotine addiction Obesity with BMI 33.9 DVT prophylaxis with heparin subcu Plan: Patient be continued on IV steroids, DuoNeb's, Pulmicort/Perforomist and oxygen therapy as needed. Continue with antibiotics in the form of doxycycline. Pulmonary is on board. Smoking cessation has been counseled extensively. Prognosis is guarded with multiple medical problems and, conditions. dry house worker be consulted for placement to assisted care facility. Time with Patient: Greater than 30
[2018-10-21 16:50] LABS: Glucose,Whole Blood 137 mg/dL (75-99)
[2018-10-21] MEDS: FORMOTEROL FUMARATE 20 MCG/2 ML NEBU INHALATION SCH ×2 (18:58→19:09)
[2018-10-21] MEDS: BUDESONIDE 1 MG/2 ML NEBU INHALATION SCH ×2 (18:59→19:09)
[2018-10-21 20:40] LABS: Glucose,Whole Blood 127 mg/dL (75-99)
[2018-10-21] MEDS ORDERED: MORPHINE SULFATE ER 60 MG TABLET PO SCH (21:00)
[2018-10-21] MEDS: MONTELUKAST 10 MG TAB PO SCH (21:20)
[2018-10-21] MEDS: MORPHINE SULFATE ER 30 MG TABLET PO SCH (22:13)
[2018-10-21] MEDS: MELATONIN 5 MG TABLET PO SCH (23:08)
[2018-10-21] MEDS: HEPARIN SODIUM,PORCINE 5,000 UNIT/ML 1 ML VIAL SQ SCH (23:08)
[2018-10-22] MEDS: IPRATROPIUM-ALBUTEROL 3 ML NEB INHALATION SCH ×6 (03:40→23:26)
[2018-10-22 06:34] LABS: Glucose,Whole Blood 186 mg/dL (75-99)
[2018-10-22] MEDS: metFORMIN 500 MG TAB PO SCH ×2 (07:09→17:10)
[2018-10-22] MEDS: FORMOTEROL FUMARATE 20 MCG/2 ML NEBU INHALATION SCH ×2 (07:54→19:07)
[2018-10-22] MEDS: BUDESONIDE 1 MG/2 ML NEBU INHALATION SCH ×2 (07:54→19:07)
[2018-10-22] MEDS: MORPHINE SULFATE ER 15 MG TABLET PO SCH (08:14)
[2018-10-22] MEDS: POTASSIUM CHLORIDE ER 10 MEQ TAB.ER.PRT PO SCH (08:15)
[2018-10-22] MEDS: METOPROLOL TARTRATE 50 MG TAB PO SCH ×2 (08:15→20:12)
[2018-10-22] MEDS: MIDODRINE 5 MG TAB PO SCH ×2 (08:15→17:09)
[2018-10-22] MEDS: THEOPHYLLINE 24 HOUR 400 MG CAP.ER.24H PO SCH (08:15)
[2018-10-22] MEDS: HEPARIN SODIUM,PORCINE 5,000 UNIT/ML 1 ML VIAL SQ SCH ×3 (08:15→20:08)
[2018-10-22] MEDS: TAMSULOSIN 0.4 MG CAP.ER.24H PO SCH (08:15)
[2018-10-22] MEDS: methylPREDNISolone SOD SUCCI 125 MG/2 ML VIAL IV SCH ×3 (08:15→23:01)
[2018-10-22] MEDS: DOXYCYCLINE 100 MG in SODIUM CHLORIDE 0.9% 100 ML IVPB SCH ×2 (09:24→20:07)
[2018-10-22] MEDS ORDERED: CALCIUM CARBONATE 500 MG CHEWABLE PO PRN (10:41)
[2018-10-22 12:09] LABS: Glucose,Whole Blood 123 mg/dL (75-99)
[2018-10-22] MEDS ORDERED: ONDANSETRON 4 MG/2 ML VIAL IVP PRN (12:16)
--- NOTE | 2018-10-22 13:58 | P.PN ---
Subjective Progress Note Date: 10/22/18 Principal diagnosis: Exacerbation of COPD This is a 78-year-old white male patient who follows with the [facility], with past medical history of advanced COPD, oxygen dependent, usually on 3 L of oxygen per nasal cannula, right and ongoing history of smoking, currently down to 1 pack a day from 2 packs a day for 63 years, history of atrial fibrillation, currently in sinus rhythm, GERD/reflux, hyperlipidemia, prostate disorder, diabetes mellitus, who resides in an adult foster care facility, who came into the emergency department at [facility] for evaluation of increasing shortness of breath, denied any cough, denied any fever or chills, denied any chest pain, or hemoptysis. Patient states he was previously in hospice for 8 months however recently was discharged from hospice, he was then [facility] in [facility] adult foster [facility] where he resided with several other residents and was not happy with the conditions there. He then decided to leave there and he had stayed in his car for over 24 hours before he came into the emergency department. From [facility] she was transferred to [facility], chest x-ray this morning shows chronic parenchymal changes bilaterally without any suspicious new focal airspace opacity, no pleural e ffusion or pneumothorax, blood fragments in the left upper chest stable from previous x-ray. Lab work this morning showed a white blood cell count of 14.9, hemoglobin of 14.6, electrolytes and renal profile within normal limits, proBNP was 714, patient is currently sinus rhythm on the monitor. His maintenance medications include Singulair, and theophylline, I don't see any inhalers or nebulized treatments on his home med list although patient states he is on nebulized treatments which he has been compliant with. His goal exam reveals a overweight male, in mild to moderate amount of respiratory distress, patient has conversational dyspnea, lung sounds are tight and wheezy, patient is currently on 5 L of oxygen. we re consulted for elevation patient shortness of breath. We had previously seen the patient in consultation earlier this month, however patient did not follow-up in outpatient setting On 10/22/2018 patient is seen in follow-up on selective care unit, he sitting up in the chair, in no acute distress, and they have 5 L of oxygen with a pulse ox of 96%, he is afebrile, his breathing easier, less panic with spastic and congested on today's exam compared to yesterday, less tachypneic. No fever or chills, denies able to produce a sputum specimen for us. Continues on nebulized bronchodilators, IV steroids, she started to respond to inpatient treatments. Objective - Vital Signs Vital signs: Vital Signs Temp 96.9 F L 10/22/18 11:42 Pulse 49 L 10/22/18 11:42 Resp 20 10/22/18 11:42 BP 106/56 10/22/18 11:42 Pulse Ox 96 10/22/18 11:42 Intake & Output 10/21/18 10/22/18 10/22/18 18:59 06:59 18:59 Intake Total 460 450 Output Total 700 1100 275 Balance -240 -1100 175 Weight 112.3 kg Intake: Oral 460 450 Output: Urine 700 1100 275 Other: # Voids 1 1 - Exam GENERAL EXAM: Alert, 78-year-old obese white male, on 5 L of oxygen, who has mild dyspnea, comfortable in no apparent distress. HEAD: Normocephalic/atraumatic. EYES: Normal reaction of pupils, equal size. Conjunctiva pink, sclera white. NOSE: Clear with pink turbinates. THROAT: No erythema or exudates. NECK: No masses, no JVD, no thyroid enlargement, no adenopathy. CHEST: No chest wall deformity. Symmetrical expansion. LUNGS: Equal air entry with diffuse wheezes CVS: Regular rate and rhythm, normal S1 and S2, no gallops, no murmurs, no rubs ABDOMEN: Soft, nontender. No hepatosplenomegaly, normal bowel sounds, no guarding or rigidity. EXTREMITIES: No clubbing, mild edema in lower extremities, no cyanosis, 2+ pulses and upper and lower extremities. MUSCULOSKELETAL: Muscle strength and tone normal. SPINE: No scoliosis or deformity SKIN: No rashes CENTRAL NERVOUS SYSTEM: Alert and oriented -3. No focal deficits, tone is normal in all 4 extremities. PSYCHIATRIC: Alert and oriented -3. Appropriate affect. Intact judgment and insight. - Labs CBC & Chem 7: 10/21/18 06:26 10/21/18 06:26 Labs: Abnormal Lab Results - Last 24 Hours (Table) 10/21/18 10/21/18 10/22/18 Range/Units 16:47 20:37 06:33 POC Glucose (mg/dL) 137 H 127 H 186 H (75-99) mg/dL 10/22/18 Range/Units 12:07 POC Glucose (mg/dL) 123 H (75-99) mg/dL Assessment and Plan Plan: Assessment: #1. Acute exacerbation of COPD, chest x-ray was negative for any acute pulmonary findings #2. History of A. fib, currently in sinus rhythm, not on any anticoagulation #3. History of COPD, severity of which is unknown, oxygen dependent, patient failed to follow-up in outpatient setting #4. Diabetes mellitus type 2 #5. Chronic and ongoing nicotine dependence, currently down to 1 pack a day, previously smoked 2 packs a day for 63 years #6. Obesity #7. Diabetes mellitus Plan: We'll continue current inpatient treatments, IV steroids, on nebulized bronchodilators, Pulmicort and Perforomist, continue empiric antibiotics, patient is improving, breathing easier today, still bronchospastic and short of breath, but appears to be improving, not quite back to baseline, and continue with current treatment I performed a history & physical examination of the patient and discussed their management with my nurse practitioner, Yanci Arteaga. I reviewed the nurse practitioner's note and agree with the documented findings and plan of care. Lung sounds are positive for diffuse wheezes. The findings and the impression was discussed with the patient. I attest to the documentation by the nurse practitioner. Time with Patient: Less than 30
[2018-10-22] MEDS: ALPRAZolam 0.25 MG TAB PO PRN ×2 (15:56→21:22)
[2018-10-22 16:48] LABS: Glucose,Whole Blood 148 mg/dL (75-99)
[2018-10-22] MEDS: MELATONIN 5 MG TABLET PO SCH (20:06)
[2018-10-22] MEDS: MONTELUKAST 10 MG TAB PO SCH (20:06)
[2018-10-22] MEDS: traZODone HCL 50 MG TAB PO PRN (20:07)
[2018-10-22] MEDS: FAMOTIDINE 20 MG TAB PO SCH (20:07)
[2018-10-22] MEDS: MORPHINE SULFATE ER 30 MG TABLET PO SCH (20:08)
[2018-10-22 21:01] LABS: Glucose,Whole Blood 177 mg/dL (75-99)
--- NOTE | 2018-10-22 21:53 | P.PN ---
Subjective Progress Note Date: 10/22/18 Principal diagnosis: Acute COPD exacerbation Patient is a 78 old male with a known history of advanced COPD, hyperlipidemia, GERD and nicotine addiction, chronic hypoxic respiratory failure on home oxygen at 3 L nasal cannula was initially presents to [facility] due to wo rsening shortness of breath. Patient does have chronic cough without any sputum production. Denied any fever or chills. No complaints of chest pain. Patient states he was previously in hospice for 8 months however recently was discharged from hospice, he was then placed in the adult foster half-way where he resided with several other residents and was not happy with the conditions there. He then decided to leave there and he had stayed in his car for over 24 hours before he came into the emergency department. Patient was transferred to [facility] for further evaluation by nigel ramirez. Patient has not seen any physician recently. Chest x-ray showed chronic parenchymal changes bilaterally without any infiltrate. BNP 714 10/22/2018 Patient says that his breathing is better today. Currently lying in the recliner comfortably. Saturating well on nasal cannula. Otherwise patient is being converted on steroids and breathing treatments and antibiotics. Pulmonary is following. Social work is on board for possible placement. Current medications reviewed. Objective - Vital Signs Vital signs: Vital Signs Temp 98 F 10/22/18 15:59 Pulse 55 L 10/22/18 19:26 Resp 20 10/22/18 15:59 BP 103/57 10/22/18 15:59 Pulse Ox 96 10/22/18 15:59 Intake & Output 10/22/18 10/22/18 10/23/18 06:59 18:59 06:59 Intake Total 550 Output Total 1100 275 Balance -1100 275 Weight 112.3 kg Intake: Intake, IV Titration 100 Amount Doxycycline 100 mg In 100 Sodium Chloride 0.9% 100 ml @ 100 mls/hr IVPB Q12HR SUMAN Rx#:[id number] Oral 450 Output: Urine 1100 275 Other: # Voids 1 - Exam PHYSICAL EXAMINATION: Patient is lying in the bed comfortably, no acute distress, awake alert and oriented.. HEENT: Normocephalic. Neck is supple. Pupils reactive. Nostrils clear. Oral cavity is moist. Ears reveal no drainage. Neck reveals no JVD, carotid bruits, or thyromegaly. CHEST EXAMINATION: Trachea is central. Symmetrical expansion. Bilateral air entry improved. Expiratory wheezing and scattered rhonchi.. CARDIAC: Normal S1, S2 with no gallops. No murmurs ABDOMEN: Soft. Bowel sounds normal. No organomegaly. No abdominal bruits. Extremities: reveal no edema. No clubbing or cyanosis Neurologically awake, alert, oriented x3 with well-coordinated movements. No focal deficits noted Skin: No rash or skin lesions. Psychiatric: Coperative. Nonsuicidal Musculoskeletal: No joint swelling or deformity. Normal range of motion. - Labs CBC & Chem 7: 10/21/18 06:26 10/21/18 06:26 Labs: Abnormal Lab Results - Last 24 Hours (Table) 10/22/18 10/22/18 10/22/18 Range/Units 06:33 12:07 16:47 POC Glucose (mg/dL) 186 H 123 H 148 H (75-99) mg/dL 10/22/18 Range/Units 20:52 POC Glucose (mg/dL) 177 H (75-99) mg/dL Assessment and Plan Assessment: Acute exacerbation of COPD Advanced COPD on home oxygen dependent. Was on hospice care previously Chronic hypoxic respiratory failure on home oxygen Diabetes type 2 [id number] Atrial fibrillation paroxysmal not on anticoagulation Ongoing nicotine addiction Obesity with BMI 33.9 DVT prophylaxis with heparin subcu Plan: Patient be continued on IV steroids, DuoNeb's, Pulmicort/Perforomist and oxygen therapy as needed. Continue with antibiotics in the form of doxycycline. Pulmonary is on board. Smoking cessation has been counseled extensively. Prognosis is guarded with multiple medical problems and, conditions. drug worker be consulted for placement to assisted care facility. Time with Patient: Greater than 30
[2018-10-23] MEDS: IPRATROPIUM-ALBUTEROL 3 ML NEB INHALATION SCH ×6 (03:02→23:27)
[2018-10-23 06:46] LABS: Glucose,Whole Blood 144 mg/dL (75-99)
[2018-10-23] MEDS: metFORMIN 500 MG TAB PO SCH ×2 (06:49→18:12)
[2018-10-23] MEDS: BUDESONIDE 1 MG/2 ML NEBU INHALATION SCH ×2 (06:50→19:39)
[2018-10-23] MEDS: FORMOTEROL FUMARATE 20 MCG/2 ML NEBU INHALATION SCH ×2 (06:50→19:39)
[2018-10-23] MEDS: MIDODRINE 5 MG TAB PO SCH ×2 (10:58→18:12)
[2018-10-23] MEDS: POLYETHYLENE GLYCOL 3350 17 GM POWD.PACK PO SCH (10:58)
[2018-10-23] MEDS: MORPHINE SULFATE ER 15 MG TABLET PO SCH (10:58)
[2018-10-23] MEDS: METOPROLOL TARTRATE 50 MG TAB PO SCH ×2 (10:58→21:36)
[2018-10-23] MEDS: THEOPHYLLINE 24 HOUR 400 MG CAP.ER.24H PO SCH (10:58)
[2018-10-23] MEDS: ISOSORBIDE MONONITRATE ER 30 MG TAB.ER.24H PO SCH (10:58)
[2018-10-23] MEDS: FAMOTIDINE 20 MG TAB PO SCH ×2 (10:59→21:36)
[2018-10-23] MEDS: POTASSIUM CHLORIDE ER 10 MEQ TAB.ER.PRT PO SCH (10:59)
[2018-10-23] MEDS: MAGNESIUM HYDROXIDE 2,400 MG/10 ML CUP PO SCH (10:59)
[2018-10-23] MEDS: TAMSULOSIN 0.4 MG CAP.ER.24H PO SCH (10:59)
[2018-10-23] MEDS: methylPREDNISolone SOD SUCCI 125 MG/2 ML VIAL IV SCH ×2 (11:00→18:11)
[2018-10-23] MEDS: FUROSEMIDE 40 MG TAB PO SCH (11:00)
[2018-10-23] MEDS: HEPARIN SODIUM,PORCINE 5,000 UNIT/ML 1 ML VIAL SQ SCH ×2 (11:00→18:11)
[2018-10-23] MEDS: DOCUSATE 100 MG CAP PO SCH (11:00)
[2018-10-23 11:44] LABS: Glucose,Whole Blood 129 mg/dL (75-99)
--- NOTE | 2018-10-23 12:08 | P.PN ---
Subjective Progress Note Date: 10/23/18 Principal diagnosis: Exacerbation of COPD This is a 78-year-old white male patient who follows with the [facility], with past medical history of advanced COPD, oxygen dependent, usually on 3 L of oxygen per nasal cannula, right and ongoing history of smoking, currently down to 1 pack a day from 2 packs a day for 63 years, history of atrial fibrillation, currently in sinus rhythm, GERD/reflux, hyperlipidemia, prostate disorder, diabetes mellitus, who resides in an adult foster care facility, who came into the emergency department at [facility] for evaluation of increasing shortness of breath, denied any cough, denied any fever or chills, denied any chest pain, or hemoptysis. Patient states he was previously in hospice for 8 months however recently was discharged from hospice, he was then placed in the adult foster [place] [facility] where he resided with several other residents and was not happy with the conditions there. He then decided to leave there and he had stayed in his car for over 24 hours before he came into the emergency department. From [facility] she was transferred to [facility], chest x-ray this morning shows chronic parenchymal changes bilaterally without any suspicious new focal airspace opacity, no pleural e ffusion or pneumothorax, blood fragments in the left upper chest stable from previous x-ray. Lab work this morning showed a white blood cell count of 14.9, hemoglobin of 14.6, electrolytes and renal profile within normal limits, proBNP was 714, patient is currently sinus rhythm on the monitor. His maintenance medications include Singulair, and theophylline, I don't see any inhalers or nebulized treatments on his home med list although patient states he is on nebulized treatments which he has been compliant with. His goal exam reveals a overweight male, in mild to moderate amount of respiratory distress, patient has conversational dyspnea, lung sounds are tight and wheezy, patient is currently on 5 L of oxygen. we re consulted for elevation patient shortness of breath. We had previously seen the patient in consultation earlier this month, however patient did not follow-up in outpatient setting On 10/22/2018 patient is seen in follow-up on selective care unit, he sitting up in the chair, in no acute distress, and they have 5 L of oxygen with a pulse ox of 96%, he is afebrile, his breathing easier, less panic with spastic and congested on today's exam compared to yesterday, less tachypneic. No fever or chills, denies able to produce a sputum specimen for us. Continues on nebulized bronchodilators, IV steroids, she started to respond to inpatient treatments. On 10/23/2018 patient seen in follow-up on [facility] care unit, he is ambulating with physical therapy, 3 L of oxygen, tolerating it fairly well considering his extensive pulmonary disease, quite wheezy, and dyspneic with any exertion, requires frequent rest periods. Lung sounds reveal diffuse wheezes, diminished breath sounds. Overall he states he is feeling better, no fever or chills, hemodynamically stable, he is on home dose O2 at 3 L with a pulse ox of 97%. No new labs, no new chest x-ray. Patient has been treated with empiric antibiotics, IV Solu-Medrol, and nebulized bronchodilators, he is improving. He is requesting to go home today. Currently patient is homeless, and social work is following and patient may need a public guardian appointments and adult protective services involved as the patient had left assisted facility [place] [facility] recently, and with his extensive medical needs patient is not able to care for himself. Objective - Vital Signs Vital signs: Vital Signs Temp 96.8 F L 10/23/18 08:00 Pulse 88 10/23/18 10:56 Resp 20 10/23/18 04:00 BP 120/65 10/23/18 08:00 Pulse Ox 97 10/23/18 08:00 Intake & Output 10/22/18 10/23/18 10/23/18 18:59 06:59 18:59 Intake Total 550 240 Output Total 275 700 Balance 275 -700 240 Intake: Intake, IV Titration 100 Amount Doxycycline 100 mg In 100 Sodium Chloride 0.9% 100 ml @ 100 mls/hr IVPB Q12HR [facility] Rx#:[id number] Oral 450 240 Output: Urine 275 700 - Exam GENERAL EXAM: Alert, 78-year-old obese white male, on 3 L of oxygen, who has mild to moderate dyspnea, comfortable in no apparent distress. HEAD: Normocephalic/atraumatic. EYES: Normal reaction of pupils, equal size. Conjunctiva pink, sclera white. NOSE: Clear with pink turbinates. THROAT: No erythema or exudates. NECK: No masses, no JVD, no thyroid enlargement, no adenopathy. CHEST: No chest wall deformity. Symmetrical expansion. LUNGS: Equal air entry with diffuse wheezes CVS: Regular rate and rhythm, normal S1 and S2, no gallops, no murmurs, no rubs ABDOMEN: Soft, nontender. No hepatosplenomegaly, normal bowel sounds, no guarding or rigidity. EXTREMITIES: No clubbing, mild edema in lower extremities, no cyanosis, 2+ pulses and upper and lower extremities. MUSCULOSKELETAL: Muscle strength and tone normal. SPINE: No scoliosis or deformity SKIN: No rashes CENTRAL NERVOUS SYSTEM: Alert and oriented -3. No focal deficits, tone is normal in all 4 extremities. PSYCHIATRIC: Alert and oriented -3. Appropriate affect. Intact judgment and insight. - Labs CBC & Chem 7: 10/21/18 06:26 10/21/18 06:26 Labs: Abnormal Lab Results - Last 24 Hours (Table) 10/22/18 10/22/18 10/22/18 Range/Units 12:07 16:47 20:52 POC Glucose (mg/dL) 123 H 148 H 177 H (75-99) mg/dL 10/23/18 10/23/18 Range/Units 06:12 11:42 POC Glucose (mg/dL) 144 H 129 H (75-99) mg/dL Assessment and Plan Plan: Assessment: #1. Acute exacerbation of COPD, chest x-ray was negative for any acute pulmonary findings #2. History of A. fib, currently in sinus rhythm, not on any anticoagulation #3. History of COPD, severity of which is unknown, oxygen dependent, patient failed to follow-up in outpatient setting #4. Diabetes mellitus type 2 #5. Chronic and ongoing nicotine dependence, currently down to 1 pack a day, previously smoked 2 packs a day for 63 years #6. Obesity #7. Diabetes mellitus Plan: Continue current plan of treatment, continue current dose IV steroids, nebulized bronchodilators and empiric antibiotics, not quite ready for discharge, still pretty dyspneic and bronchospastic, increase activity as tolerated, social work is following, and is working on obtaining public guardianship and likely placement to adult foster care facility. He is not able to care for himself with multiple medical needs, home oxygen. He is currently homeless. I performed a history & physical examination of the patient and discussed their management with my nurse practitioner, Yanci Arteaga. I reviewed the nurse practitioner's note and agree with the documented findings and plan of care. Lung sounds are positive for diffuse wheezes. The findings and the impression was discussed with the patient. I attest to the documentation by the nurse practitioner. Time with Patient: Less than 30
[2018-10-23] MEDS: DOXYCYCLINE 100 MG in SODIUM CHLORIDE 0.9% 100 ML IVPB SCH ×2 (13:20→21:54)
[2018-10-23] MEDS: ALPRAZolam 0.25 MG TAB PO PRN (15:31)
[2018-10-23 16:48] LABS: Glucose,Whole Blood 197 mg/dL (75-99)
[2018-10-23] MEDS: traZODone HCL 50 MG TAB PO PRN (18:11)
[2018-10-23] MEDS: PROMETHAZINE 25 MG TAB PO PRN (18:12)
[2018-10-23 20:48] LABS: Glucose,Whole Blood 123 mg/dL (75-99)
[2018-10-23] MEDS: MELATONIN 5 MG TABLET PO SCH (21:36)
[2018-10-23] MEDS: MONTELUKAST 10 MG TAB PO SCH (21:36)
--- NOTE | 2018-10-23 23:14 | P.PN ---
Subjective Progress Note Date: 10/23/18 Principal diagnosis: Acute COPD exacerbation Patient is a 78 old male with a known history of advanced COPD, hyperlipidemia, GERD and nicotine addiction, chronic hypoxic respiratory failure on home oxygen at 3 L nasal cannula was initially presents to [facility] due to wo rsening shortness of breath. Patient does have chronic cough without any sputum production. Denied any fever or chills. No complaints of chest pain. Patient states he was previously in hospice for 8 months however recently was discharged from hospice, he was then placed in the adult foster shelter where he resided with several other residents and was not happy with the conditions there. He then decided to leave there and he had stayed in his car for over 24 hours before he came into the emergency department. Patient was transferred to [facility] for further evaluation by nigel ramirez. Patient has not seen any physician recently. Chest x-ray showed chronic parenchymal changes bilaterally without any infiltrate. BNP 714 10/22/2018 Patient says that his breathing is better today. Currently lying in the recliner comfortably. Saturating well on nasal cannula. Otherwise patient is being converted on steroids and breathing treatments and antibiotics. Pulmonary is following. Social work is on board for possible placement. The 2018 Patient is sitting in the chair currently. Denied any worsening shortness of breath or chest pain. Still having exertional dyspnea and not back to baseline. Patient does have underlying advanced COPD. Currently being continued on oxygen via nasal cannula at 3-4 L. Continued on IV steroids and breathing treatments. Pulmonary is on board. Social work is following for possible placement. Current medications reviewed. Objective - Vital Signs Vital signs: Vital Signs Temp 96.8 F L 10/23/18 08:00 Pulse 82 10/23/18 20:02 Resp 20 10/23/18 04:00 BP 108/57 10/23/18 12:00 Pulse Ox 95 10/23/18 16:00 Intake & Output 10/23/18 10/23/18 10/24/18 06:59 18:59 06:59 Intake Total 462 Output Total 700 1600 Balance -700 1133 Intake: Oral 462 Output: Urine 700 1600 Other: # Voids 1 - Exam PHYSICAL EXAMINATION: Patient is lying in the bed comfortably, no acute distress, awake alert and oriented.. HEENT: Normocephalic. Neck is supple. Pupils reactive. Nostrils clear. Oral cavity is moist. Ears reveal no drainage. Neck reveals no JVD, carotid bruits, or thyromegaly. CHEST EXAMINATION: Trachea is central. Symmetrical expansion. Bilateral air entry improved. Expiratory wheezing and scattered rhonchi.. CARDIAC: Normal S1, S2 with no gallops. No murmurs ABDOMEN: Soft. Bowel sounds normal. No organomegaly. No abdominal bruits. Extremities: reveal no edema. No clubbing or cyanosis Neurologically awake, alert, oriented x3 with well-coordinated movements. No focal deficits noted Skin: No rash or skin lesions. Psychiatric: Coperative. Nonsuicidal Musculoskeletal: No joint swelling or deformity. Normal range of motion. - Labs CBC & Chem 7: 10/21/18 06:26 10/21/18 06:26 Labs: Abnormal Lab Results - Last 24 Hours (Table) 10/23/18 10/23/18 10/23/18 Range/Units 06:12 11:42 16:47 POC Glucose (mg/dL) 144 H 129 H 197 H (75-99) mg/dL 10/23/18 Range/Units 20:47 POC Glucose (mg/dL) 123 H (75-99) mg/dL Assessment and Plan Assessment: Acute exacerbation of COPD Advanced COPD on home oxygen dependent. Was on hospice care previously Chronic hypoxic respiratory failure on home oxygen Diabetes type 2 [id number] Atrial fibrillation paroxysmal not on anticoagulation Ongoing nicotine addiction Obesity with BMI 33.9 DVT prophylaxis with heparin subcu Plan: Patient be continued on IV steroids, DuoNeb's, Pulmicort/Perforomist and oxygen therapy as needed. Continue with antibiotics in the form of doxycycline. Pulmonary is on board. Smoking cessation has been counseled extensively. Prognosis is guarded with multiple medical problems and, conditions. 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 Time with Patient: Greater than 30
[2018-10-24] MEDS: ALPRAZolam 0.25 MG TAB PO PRN ×4 (00:19→23:28)
[2018-10-24] MEDS: methylPREDNISolone SOD SUCCI 125 MG/2 ML VIAL IV SCH ×4 (00:20→23:27)
[2018-10-24] MEDS: HEPARIN SODIUM,PORCINE 5,000 UNIT/ML 1 ML VIAL SQ SCH ×4 (00:20→23:27)
[2018-10-24] MEDS ORDERED: IPRATROPIUM-ALBUTEROL 3 ML NEB ONE (04:00)
[2018-10-24] MEDS: NITROGLYCERIN SL TABS 0.4 MG TAB SUBLINGUAL PRN ×6 (05:45→17:01)
[2018-10-24 06:04] LABS: Glucose,Whole Blood 93 mg/dL (75-99)
[2018-10-24] MEDS ORDERED: NITROGLYCERIN SL TABS 0.4 MG TAB SUBLINGUAL PRN (06:22)
[2018-10-24] MEDS: IPRATROPIUM-ALBUTEROL 3 ML NEB INHALATION SCH ×7 (06:27→23:32)
[2018-10-24] MEDS: metFORMIN 500 MG TAB PO SCH ×2 (06:56→15:19)
[2018-10-24 08:26] LABS: Calcium 9.8 mg/dL (8.4-10.2); Potassium 4.2 mmol/L (3.5-5.1)
[2018-10-24] MEDS: BUDESONIDE 1 MG/2 ML NEBU INHALATION SCH ×3 (08:26→19:42)
[2018-10-24] MEDS: FORMOTEROL FUMARATE 20 MCG/2 ML NEBU INHALATION SCH ×3 (08:26→19:42)
[2018-10-24] MEDS: MIDODRINE 5 MG TAB PO SCH ×2 (09:24→15:17)
[2018-10-24] MEDS: POLYETHYLENE GLYCOL 3350 17 GM POWD.PACK PO SCH (09:24)
[2018-10-24] MEDS: DOXYCYCLINE 100 MG in SODIUM CHLORIDE 0.9% 100 ML IVPB SCH ×2 (09:24→20:53)
[2018-10-24] MEDS: MAGNESIUM HYDROXIDE 2,400 MG/10 ML CUP PO SCH (09:25)
[2018-10-24] MEDS: FUROSEMIDE 40 MG TAB PO SCH (09:25)
[2018-10-24] MEDS: DOCUSATE 100 MG CAP PO SCH (09:25)
[2018-10-24] MEDS: THEOPHYLLINE 24 HOUR 400 MG CAP.ER.24H PO SCH (09:25)
[2018-10-24] MEDS: TAMSULOSIN 0.4 MG CAP.ER.24H PO SCH (09:25)
[2018-10-24] MEDS: ISOSORBIDE MONONITRATE ER 30 MG TAB.ER.24H PO SCH (09:26)
[2018-10-24] MEDS: MORPHINE SULFATE ER 15 MG TABLET PO SCH (09:26)
[2018-10-24] MEDS: FAMOTIDINE 20 MG TAB PO SCH ×2 (09:26→20:46)
[2018-10-24] MEDS: POTASSIUM CHLORIDE ER 10 MEQ TAB.ER.PRT PO SCH (09:26)
[2018-10-24] MEDS: METOPROLOL TARTRATE 50 MG TAB PO SCH ×2 (09:26→20:45)
--- NOTE | 2018-10-24 10:21 | P.CRDCN ---
History of Present Illness Consult date: 10/24/18 Requesting physician: Adam Mg Consult reason: chest pain Chief complaint: Shortness of breath History of present illness: This is a 78-year-old gentleman with known history of diet-controlled diabetes, nicotine dependence, paroxysmal atrial fibrillation, hyperlipidemia, hypertension, GERD, advanced COPD, oxygen dependent, who presented to [facility] with symptoms of shortness of breath. Patient apparently had been in hospice for quite some time, he was discharged from hospice and sent to the adult foster snf. Patient was quite unhappy at the adult [place] sn[facility], and apparently left there, for at least one day duration he had been living in his car. Chest x-ray performed at [place] did not reveal any active cardiopulmonary disease. Patient had an EKG a [facility] that showed a sinus rhythm with a right bundle branch block pattern. Temperature on [facility] was 99.2, heart rate in the 80s, blood pressure 129/60, oxygen saturation 84%. White blood cell count 15.7, hemoglobin 13.9, platelet count 224. Sodium 139, potassium 3.7, BUN 19, creatinine 1.0. Troponin 0.013, magnesium 2.0, BNP level 714, pro calcitonin 0.05. EKG on arrival here showed a sinus bradycardia with a right bundle branch block pattern and left axis deviati on. I pressure here 98/60 with a heart rate in the 60s, 94% on 4 L of oxygen. White blood cell count 14.9, hemoglobin 14.6, platelet count 252. Sodium 139, potassium 4.3, BUN at 19 creatinine 0.9, troponin 0.014. S x-ray on arrival here showed overall stable findings area chronic changes without any acute pulmonary process. At the time of my examination, patient is sitting up in his chair at bedside, he denies having any chest discomfort, just states that he was feeling short of breath. Past Medical History Past Medical History: COPD, GERD/Reflux, Hyperlipidemia, Prostate Disorder Additional Past Medical History / Comment(s): chronic pelvic pain History of Any Multi-Drug Resistant Organisms: None Reported Past Surgical History: No Surgical Hx Reported Past Anesthesia/Blood Transfusion Reactions: No Reported Reaction Past Psychological History: No Psychological Hx Reported Smoking Status: Current every day smoker Past Alcohol Use History: None Reported Past Drug Use History: None Reported Medications and Allergies Home Medications Medication Instructions Recorded Confirmed Type Morphine Sulfate ER [Ms Contin] 45 mg PO QAM 10/07/17 10/22/18 History Morphine Sulfate ER [Ms Contin] 60 mg PO HS 10/07/17 10/20/18 History Tamsulosin HCl [Flomax] 0.4 mg PO DAILY 10/07/17 10/20/18 History Metoprolol Tartrate [Lopressor] 50 mg PO BID 10/20/18 10/20/18 History Midodrine [ProAmatine] 5 mg PO BID 10/20/18 10/20/18 History Montelukast [Singulair] 10 mg PO HS 10/20/18 10/20/18 History Potassium Chloride [K-Tab ER] 10 meq PO DAILY 10/20/18 10/20/18 History Theophylline 24 Hour [Deni-24] 800 mg PO DAILY 10/20/18 10/20/18 History metFORMIN HCL 500 mg PO BID 10/20/18 10/20/18 History Albuterol Sulfate [Proair Hfa] 2 puff INHALATION Q4HR PRN 10/22/18 10/22/18 History Apixaban [Eliquis] 5 mg PO BID 10/22/18 10/22/18 History Cephalexin [Keflex] 500 mg PO Q8HR 10/22/18 10/22/18 History Docusate [Colace] 100 mg PO DAILY 10/22/18 10/22/18 History Famotidine [Pepcid] 20 mg PO BID 10/22/18 10/22/18 History Furosemide [Lasix] 40 mg PO DAILY 10/22/18 10/22/18 History Glycopyrrolate/Formoterol Fum 2 puff INHALATION BID 10/22/18 10/22/18 History [Bevespi Aerosphere Inhaler] HYDROcodone/APAP 5-325MG [Rainelle 5] 2 tablet PO Q8HR PRN 10/22/18 10/22/18 History Ipratropium-Albuterol Nebulize 3 ml INHALATION Q6HR 10/22/18 10/22/18 History [Duoneb 0.5 mg-3 mg/3 ml Soln] Isosorbide Dinitrate 30 mg PO DAILY 10/22/18 10/22/18 History LORazepam [Ativan] 2 mg PO RT-QID 10/22/18 10/22/18 History Magnesium Hydroxide [Milk of 400 mg PO DAILY 10/22/18 10/22/18 History Magnesia] Methadone HCl [Dolophine HCl] 5 mg PO DAILY 10/22/18 10/22/18 History Metoprolol Tartrate [Lopressor] 50 mg PO BID 10/22/18 10/22/18 History Nitroglycerin Sl Tabs [Nitrostat] 0.4 mg SUBLINGUAL Q5M PRN 10/22/18 10/22/18 History Ondansetron [Zofran] 4 mg PO Q8HR PRN 10/22/18 10/22/18 History Polyethylene Glycol 3350 [Miralax] 17 gm PO DAILY 10/22/18 10/22/18 History Promethazine HCl 25 mg PO Q6HR PRN 10/22/18 10/22/18 History predniSONE 10 mg PO DAILY 10/22/18 10/22/18 History traZODone HCL 50 mg PO HS PRN 10/22/18 10/22/18 History Allergies Allergy/AdvReac Type Severity Reaction Status Date / Time mold Allergy Itching Verified 10/07/17 12:42 Physical Exam Vitals: Vital Signs Temp Pulse Pulse Resp BP Pulse Ox 10/24/18 08:53 72 10/24/18 08:44 70 10/24/18 08:34 68 10/24/18 08:00 20 10/24/18 06:18 97.9 F 62 20 98/68 94 L 10/24/18 05:00 80 10/24/18 04:50 80 10/23/18 23:49 74 16 10/23/18 23:38 84 16 10/23/18 23:27 82 18 10/23/18 23:00 98.5 F 74 18 118/77 95 10/23/18 20:02 82 10/23/18 19:55 82 10/23/18 19:41 80 10/23/18 16:23 83 10/23/18 16:12 80 10/23/18 16:00 64 95 10/23/18 12:00 56 L 108/57 96 10/23/18 10:56 88 10/23/18 10:46 88 Intake and Output 10/23/18 10/24/18 10/24/18 22:59 06:59 14:59 Intake Total 240 Output Total 1050 500 Balance -1050 -500 240 Intake: Oral 240 Output: Urine 1050 500 Other: # Voids 1 1 ENERAL EXAM: Alert, 78-year-old obese white male, on 5 L of oxygen, who has conversational dyspnea, comfortable in no apparent distress. HEAD: Normocephalic/atraumatic. EYES: Normal reaction of pupils, equal size. Conjunctiva pink, sclera white. NOSE: Clear with pink turbinates. THROAT: No erythema or exudates. NECK: No masses, no JVD, no thyroid enlargement, no adenopathy. CHEST: No chest wall deformity. Symmetrical expansion. LUNGS: Equal air entry with diffuse wheezes CVS: Regular rate and rhythm, normal S1 and S2, no gallops, no murmurs, no rubs ABDOMEN: Soft, nontender. No hepatosplenomegaly, normal bowel sounds, no guarding or rigidity. EXTREMITIES: No clubbing, mild edema in lower extremities, no cyanosis, 2+ pulses and upper and lower extremities. MUSCULOSKELETAL: Muscle strength and tone normal. SPINE: No scoliosis or deformity SKIN: No rashes CENTRAL NERVOUS SYSTEM: Alert and oriented -3. No focal deficits, tone is normal in all 4 extremities. PSYCHIATRIC: Alert and oriented -3. Appropriate affect. Intact judgment and insight. Results 10/21/18 06:26 10/24/18 07:46 Cardiac Enzymes 10/24/18 Range/Units 07:46 Troponin I 0.014 (0.000-0.034) ng/mL Comprehensive Metabolic Panel 10/24/18 Range/Units 07:46 Sodium 140 (137-145) mmol/L Potassium 4.2 (3.5-5.1) mmol/L Chloride 98 (98-107) mmol/L Carbon Dioxide 36 H (22-30) mmol/L BUN 23 H (9-20) mg/dL Creatinine 1.14 (0.66-1.25) mg/dL Glucose 87 (74-99) mg/dL Calcium 9.8 (8.4-10.2) mg/dL Current Medications Generic Name Dose Route Start Last Admin Trade Name Freq PRN Reason Stop Dose Admin Albuterol/Ipratropium 3 ml 10/21/18 00:00 10/24/18 08:34 Duoneb 0.5 Mg-3 Mg/3 Ml Soln INHALATION 3 ml RT-Q4H SUMAN Administration Albuterol/Ipratropium 3 ml 10/20/18 22:10 10/21/18 10:30 Duoneb 0.5 Mg-3 Mg/3 Ml Soln INHALATION 3 ml RT-Q2H PRN Administration Shortness Of Breath Or Wheezing Alprazolam 0.25 mg 10/21/18 11:44 10/24/18 06:56 Xanax PO 0.25 mg TID PRN Administration Anxiety Budesonide 1 mg 10/21/18 20:00 10/24/18 08:34 Pulmicort INHALATION 1 mg RT-BID SUMAN Administration Calcium Carbonate/Glycine 1,000 mg 10/22/18 10:41 10/22/18 10:58 Tums PO 1,000 mg QID PRN Administration Heartburn Docusate Sodium 100 mg 10/23/18 09:00 10/24/18 09:25 Colace PO 100 mg DAILY SUMAN Administration Famotidine 20 mg 10/22/18 21:00 10/24/18 09:26 Pepcid PO 20 mg BID SUMAN Administration Formoterol Fumarate 20 mcg 10/21/18 20:00 10/24/18 08:34 Perforomist INHALATION 20 mcg RT-BID SUMAN Administration Furosemide 40 mg 10/23/18 09:00 10/24/18 09:25 Lasix PO 40 mg DAILY SUMAN Administration Heparin Sodium (Porcine) 5,000 unit 10/22/18 00:00 10/24/18 09:25 Heparin SQ 5,000 unit Q8HR SUMAN Administration Doxycycline Hyclate 100 mg/ 100 mls @ 100 mls/hr 10/21/18 09:00 10/24/18 09:24 Sodium Chloride IVPB 100 mls/hr Q12HR SUMAN Administration Isosorbide Mononitrate 30 mg 10/23/18 09:00 10/24/18 09:26 Imdur PO 30 mg DAILY SUMAN Administration Magnesium Hydroxide 400 mg 10/23/18 09:00 10/24/18 09:25 Milk Of Magnesia PO 400 mg DAILY SUMAN Administration Melatonin 5 mg 10/21/18 23:00 10/23/18 21:36 Melatonin PO 5 mg HS SUMAN Administration Metformin HCl 500 mg 10/21/18 07:30 10/24/18 06:56 Glucophage PO 500 mg BID-W/MEALS SUMAN Administration Methylprednisolone Sodium Succinate 60 mg 10/21/18 00:00 10/24/18 09:23 Solu-Medrol IV 60 mg Q8HR SUMAN Administration Metoprolol Tartrate 50 mg 10/21/18 09:00 10/24/18 09:26 Lopressor PO 50 mg BID SUMAN Administration Midodrine 5 mg 10/21/18 09:00 10/24/18 09:24 Proamatine PO 5 mg BID@0900,1700 SUMAN Administration Montelukast Sodium 10 mg 10/21/18 21:00 10/23/18 21:36 Singulair PO 10 mg HS SUMAN Administration Morphine Sulfate 15 mg 10/21/18 09:00 10/24/18 09:26 Ms Contin PO 15 mg QAM SUMAN Administration Morphine Sulfate 60 mg 10/21/18 21:24 10/22/18 20:08 Ms Contin PO 60 mg HS SUMAN Administration Nitroglycerin 0.4 mg 10/24/18 06:47 10/24/18 05:50 Nitrostat SUBLINGUAL 0.4 mg Q5M PRN Administration Chest Pain Ondansetron HCl 4 mg 10/22/18 12:16 10/22/18 12:29 Zofran IVP 4 mg Q6HR PRN Administration Nausea And Vomiting Polyethylene Glycol 17 gm 10/23/18 09:00 10/24/18 09:24 Miralax PO 17 gm DAILY SUMAN Administration Potassium Chloride 10 meq 10/21/18 09:00 10/24/18 09:26 K-Dur 10 PO 10 meq DAILY SUMAN Administration Promethazine HCl 25 mg 10/22/18 16:26 10/23/18 18:12 Phenergan PO 25 mg Q6HR PRN Administration Nausea Ropinirole HCl 0.75 mg 10/21/18 21:00 10/23/18 21:35 Requip PO 0.75 mg HS SUMAN Administration Tamsulosin HCl 0.4 mg 10/21/18 09:00 10/24/18 09:25 Flomax PO 0.4 mg DAILY SUMAN Administration Theophylline 800 mg 10/21/18 09:00 10/24/18 09:25 Deni-24 PO 800 mg DAILY SUMAN Administration Trazodone HCl 50 mg 10/22/18 16:26 10/23/18 18:11 Desyrel PO 50 mg HS PRN Administration Insomnia Intake and Output 10/23/18 10/24/18 10/24/18 22:59 06:59 14:59 Intake Total 240 Output Total 1050 500 Balance -1050 -500 240 Intake: Oral 240 Output: Urine 1050 500 Other: # Voids 1 1 10/21/18 06:26 10/24/18 07:46 EKG Interpretations (text) EKG shows a sinus bradycardia with a right bundle branch block pattern, left axis deviation Assessment and Plan Plan: Assessment and plan #1 symptoms of worsening shortness of breath, likely acute exacerbation of COPD, chest x-ray negative for any acute findings #2 history of paroxysmal atrial fibrillation, remaining in normal sinus rhythm, not currently on any anticoagulation #3 diabetes #4 hyperlipidemia #5 hypertension #6 nicotine dependence #7 obesity Plan We will obtain an echocardiogram with Doppler study. The patient had an e chocardiogram with Doppler study performed in September 2017 which revealed a normal left ventricular systolic function at that time. Initiate a statin, patient is a known diabetic. Start the patient on a baby aspirin. Further recommendations to follow. DNP note has been reviewed, I agree with a documented findings and plan of care. Patient was seen and examined.
--- NOTE | 2018-10-24 11:45 | ECHOF ---
Referral Reason:sob MEASUREMENTS -------- HEIGHT: 180.3 cm WEIGHT: 112.0 kg BP: RVIDd: 3.6 cm (< 3.3) IVSd: 1.0 cm (0.6 - 1.1) LVIDd: 4.7 cm (3.9 - 5.3) LVPWd: 1.8 cm (0.6 - 1.1) IVSs: 1.6 cm LVIDs: 2.6 cm LVPWs: 2.2 cm Ao Diam: 3.7 cm (2.0 - 3.7) AV Cusp: 2.6 cm (1.5 - 2.6) LA Diam: 3.8 cm (2.7 - 3.8) MV EXCURSION: 18.221 mm (> 18.000) MV EF SLOPE: 104 mm/s (70 - 150) EPSS: 0.7 cm MV E Alexis: 0.64 m/s MV DecT: 246 ms MV A Alexis: 0.64 m/s MV E/A Ratio: 0.99 RAP: 5.00 mmHg RVSP: 20.59 mmHg FINDINGS -------- Undetermined rhythm. This was a technically difficult study with suboptimal views. The left ventricular size is normal. There is mild concentric left ventricular hypertrophy. Overa ll left ventricular systolic function is normal with, an EF between 55 - 60 %. The right ventricle is mildly enlarged. The left atrial size is normal. The right atrial size is normal. Lumason used The aortic valve was not well visualized. The mitral valve leaflets are mildly thickened. Mild mitral regurgitation is present. The tricuspid valve appears structurally normal. Mild tricuspid regurgitation present. Right vent ricular systolic pressure is normal at < 35 mmHg. There is no pulmonic regurgitation present. The aortic root size is normal. IVC Not well visulized. There is no pericardial effusion. CONCLUSIONS -------- 1. Undetermined rhythm. 2. This was a technically difficult study with suboptimal views. 3. The left ventricular size is normal. 4. There is mild concentric left ventricular hypertrophy. 5. Overall left ventricular systolic function is normal with, an EF between 55 - 60 %. 6. The right ventricle is mildly enlarged. 7. The left atrial size is normal. 8. The right atrial size is normal. 9. Lumason used 10. The aortic valve was not well visualized. 11. The mitral valve leaflets are mildly thickened. 12. Mild mitral regurgitation is present. 13. The tricuspid valve appears structurally normal. 14. Mild tricuspid regurgitation present. 15. Right ventricular systolic pressure is normal at < 35 mmHg. 16. There is no pulmonic regurgitation present. 17. The aortic root size is normal. 18. IVC Not well visulized. 19. There is no pericardial effusion. GLASSWARE DEFECT REPAIRER: Zuri Burgess RDCS
[2018-10-24] MEDS: ASPIRIN 81 MG PO SCH (11:55)
[2018-10-24] MEDS: ATORVASTATIN 40 MG TAB PO SCH (11:55)
[2018-10-24 11:56] LABS: Glucose,Whole Blood 210 mg/dL (75-99)
[2018-10-24] MEDS: INSULIN ASPART (NovoLOG) 100 UNIT/ML VIAL SQ SCH ×3 (11:56→20:46)
[2018-10-24] MEDS: CITALOPRAM HYDROBROMIDE 10 MG TAB PO SCH (15:16)
--- NOTE | 2018-10-24 16:53 | P.PN ---
Subjective Progress Note Date: 10/24/18 Principal diagnosis: Exacerbation of COPD This is a 78-year-old white male patient who follows with the [facility], with past medical history of advanced COPD, oxygen dependent, usually on 3 L of oxygen per nasal cannula, right and ongoing history of smoking, currently down to 1 pack a day from 2 packs a day for 63 years, history of atrial fibrillation, currently in sinus rhythm, GERD/reflux, hyperlipidemia, prostate disorder, diabetes mellitus, who resides in an adult foster care facility, who came into the emergency department at [facility] for evaluation of increasing shortness of breath, denied any cough, denied any fever or chills, denied any chest pain, or hemoptysis. Patient states he was previously in hospice for 8 months however recently was discharged from hospice, he was then placed in the adult foster assisted where he resided with several other residents and was not happy with the conditions there. He then decided to leave there and he had stayed in his car for over 24 hours before he came into the emergency department. From [facility] she was transferred to [facility], chest x-ray this morning shows chronic parenchymal changes bilaterally without any suspicious new focal airspace opacity, no pleural e ffusion or pneumothorax, blood fragments in the left upper chest stable from previous x-ray. Lab work this morning showed a white blood cell count of 14.9, hemoglobin of 14.6, electrolytes and renal profile within normal limits, proBNP was 714, patient is currently sinus rhythm on the monitor. His maintenance medications include Singulair, and theophylline, I don't see any inhalers or nebulized treatments on his home med list although patient states he is on nebulized treatments which he has been compliant with. His goal exam reveals a overweight male, in mild to moderate amount of respiratory distress, patient has conversational dyspnea, lung sounds are tight and wheezy, patient is currently on 5 L of oxygen. we re consulted for elevation patient shortness of breath. We had previously seen the patient in consultation earlier this month, however patient did not follow-up in outpatient setting On 10/22/2018 patient is seen in follow-up on selective care unit, he sitting up in the chair, in no acute distress, and they have 5 L of oxygen with a pulse ox of 96%, he is afebrile, his breathing easier, less panic with spastic and congested on today's exam compared to yesterday, less tachypneic. No fever or chills, denies able to produce a sputum specimen for us. Continues on nebulized bronchodilators, IV steroids, she started to respond to inpatient treatments. On 10/23/2018 patient seen in follow-up on selective care unit, he is ambulating with physical therapy, 3 L of oxygen, tolerating it fairly well considering his extensive pulmonary disease, quite wheezy, and dyspneic with any exertion, requires frequent rest periods. Lung sounds reveal diffuse wheezes, diminished breath sounds. Overall he states he is feeling better, no fever or chills, hemodynamically stable, he is on home dose O2 at 3 L with a pulse ox of 97%. No new labs, no new chest x-ray. Patient has been treated with empiric antibiotics, IV Solu-Medrol, and nebulized bronchodilators, he is improving. He is requesting to go home today. Currently patient is homeless, and social work is following and patient may need a public guardian appointments and adult protective services involved as the patient had left assisted facility assisted recently, and with his extensive medical needs patient is not able to care for himself. On 10/16/2018 patient seen in follow-up on selective care unit. He sits up in the recliner, in no acute distress, he is breathing easier, his lung sounds better today, less dyspneic, less bronchospastic, end expiratory wheezes on forced exhale maneuver, currently on 3 L of oxygen pulse ox of 98%, no fever or chills, hemodynamically stable, he is on antibiotics, nebulized bronchodilators, and steroids, he is improving. Apparently social work has gotten hold of patient's daughter who resides in [place], and the patient has agreed to travel to [place] be with his daughter. Clinically stable, would be considered for discharge once the flight arrangements are in place Objective - Vital Signs Vital signs: Vital Signs Temp 98.5 F 10/24/18 12:30 Pulse 64 10/24/18 16:00 Resp 24 10/24/18 16:00 BP 90/50 10/24/18 16:00 Pulse Ox 98 10/24/18 16:00 Intake & Output 10/23/18 10/24/18 10/24/18 18:59 06:59 18:59 Intake Total 462 480 Output Total 1600 750 225 Balance -1138 -495 122 Intake: Oral 462 480 Output: Urine 1600 750 225 Other: Voiding Method Urinal # Voids 1 1 1 - Exam GENERAL EXAM: Alert, 78-year-old obese white male, on 3 L of oxygen, who has mild to moderate dyspnea, comfortable in no apparent distress. HEAD: Normocephalic/atraumatic. EYES: Normal reaction of pupils, equal size. Conjunctiva pink, sclera white. NOSE: Clear with pink turbinates. THROAT: No erythema or exudates. NECK: No masses, no JVD, no thyroid enlargement, no adenopathy. CHEST: No chest wall deformity. Symmetrical expansion. LUNGS: Equal air entry with expiratory wheezes on 460 maneuver, unless br onchospastic compared to admission CVS: Regular rate and rhythm, normal S1 and S2, no gallops, no murmurs, no rubs ABDOMEN: Soft, nontender. No hepatosplenomegaly, normal bowel sounds, no guarding or rigidity. EXTREMITIES: No clubbing, mild edema in lower extremities, no cyanosis, 2+ pulses and upper and lower extremities. MUSCULOSKELETAL: Muscle strength and tone normal. SPINE: No scoliosis or deformity SKIN: No rashes CENTRAL NERVOUS SYSTEM: Alert and oriented -3. No focal deficits, tone is normal in all 4 extremities. PSYCHIATRIC: Alert and oriented -3. Appropriate affect. Intact judgment and insight. - Labs CBC & Chem 7: 10/21/18 06:26 10/24/18 07:46 Labs: Abnormal Lab Results - Last 24 Hours (Table) 10/23/18 10/23/18 10/24/18 Range/Units 16:47 20:47 07:46 Carbon Dioxide 36 H (22-30) mmol/L BUN 23 H (9-20) mg/dL POC Glucose (mg/dL) 197 H 123 H (75-99) mg/dL 10/24/18 Range/Units 11:51 Carbon Dioxide (22-30) mmol/L BUN (9-20) mg/dL POC Glucose (mg/dL) 210 H (75-99) mg/dL Assessment and Plan Plan: Assessment: #1. Acute exacerbation of COPD, chest x-ray was negative for any acute pulmonary findings #2. History of A. fib, currently in sinus rhythm, not on any anticoagulation #3. History of COPD, severity of which is unknown, oxygen dependent, patient failed to follow-up in outpatient setting #4. Diabetes mellitus type 2 #5. Chronic and ongoing nicotine dependence, currently down to 1 pack a day, previously smoked 2 packs a day for 63 years #6. Obesity #7. Diabetes mellitus Plan: Continue current medical treatment, patient is improving, breathing easier, less bronchospastic, no fever or chills, tolerating ambulation, he is on home dose O2 at 3 L, maintaining good saturations. From pulmonary perspective patient is improving, he could be considered for discharge home once cleared by cardiology. Apparently his daughter in [place] has agreed to take him and the patient is agreeable to travel to [place] to live with his daughter. I performed a history & physical examination of the patient and discussed their management with my nurse practitioner, Yanci Arteaga. I reviewed the nurse practitioner's note and agree with the documented findings and plan of care. Lung sounds are positive for diffuse wheezes. The findings and the impression was discussed with the patient. I attest to the documentation by the nurse practitioner. Time with Patient: Less than 30
[2018-10-24] MEDS: traZODone HCL 50 MG TAB PO PRN (17:02)
[2018-10-24 18:06] LABS: Glucose,Whole Blood 140 mg/dL (75-99)
[2018-10-24 20:22] LABS: Glucose,Whole Blood 209 mg/dL (75-99)
[2018-10-24] MEDS: MONTELUKAST 10 MG TAB PO SCH (20:46)
[2018-10-24] MEDS: MORPHINE SULFATE ER 30 MG TABLET PO SCH (20:46)
[2018-10-24] MEDS: MELATONIN 5 MG TABLET PO SCH (20:46)
[2018-10-25] MEDS: IPRATROPIUM-ALBUTEROL 3 ML NEB INHALATION SCH ×6 (03:25→23:11)
[2018-10-25 07:10] LABS: Glucose,Whole Blood 202 mg/dL (75-99)
[2018-10-25] MEDS: DOXYCYCLINE 100 MG in SODIUM CHLORIDE 0.9% 100 ML IVPB SCH ×2 (07:36→20:53)
[2018-10-25] MEDS: ATORVASTATIN 40 MG TAB PO SCH (07:37)
[2018-10-25] MEDS: DOCUSATE 100 MG CAP PO SCH (07:37)
[2018-10-25] MEDS: HEPARIN SODIUM,PORCINE 5,000 UNIT/ML 1 ML VIAL SQ SCH ×3 (07:37→23:28)
[2018-10-25] MEDS: POLYETHYLENE GLYCOL 3350 17 GM POWD.PACK PO SCH (07:37)
[2018-10-25] MEDS: TAMSULOSIN 0.4 MG CAP.ER.24H PO SCH (07:37)
[2018-10-25] MEDS: ASPIRIN 81 MG PO SCH (07:37)
[2018-10-25] MEDS: ISOSORBIDE MONONITRATE ER 30 MG TAB.ER.24H PO SCH (07:37)
[2018-10-25] MEDS: MAGNESIUM HYDROXIDE 2,400 MG/10 ML CUP PO SCH (07:38)
[2018-10-25] MEDS: INSULIN ASPART (NovoLOG) 100 UNIT/ML VIAL SQ SCH ×4 (07:38→19:41)
[2018-10-25] MEDS: methylPREDNISolone SOD SUCCI 125 MG/2 ML VIAL IV SCH ×3 (07:39→23:28)
[2018-10-25] MEDS: THEOPHYLLINE 24 HOUR 400 MG CAP.ER.24H PO SCH (07:39)
[2018-10-25] MEDS: metFORMIN 500 MG TAB PO SCH ×2 (07:40→16:46)
[2018-10-25] MEDS: MIDODRINE 5 MG TAB PO SCH ×2 (07:40→16:46)
[2018-10-25] MEDS: FAMOTIDINE 20 MG TAB PO SCH ×2 (07:40→19:40)
[2018-10-25] MEDS: MORPHINE SULFATE ER 15 MG TABLET PO SCH (07:40)
[2018-10-25] MEDS: POTASSIUM CHLORIDE ER 10 MEQ TAB.ER.PRT PO SCH (07:40)
[2018-10-25] MEDS: CITALOPRAM HYDROBROMIDE 10 MG TAB PO SCH (07:41)
[2018-10-25] MEDS: METOPROLOL TARTRATE 50 MG TAB PO SCH ×2 (07:41→19:51)
[2018-10-25] MEDS: FUROSEMIDE 40 MG TAB PO SCH (07:41)
[2018-10-25] MEDS: BUDESONIDE 1 MG/2 ML NEBU INHALATION SCH ×2 (08:00→20:28)
[2018-10-25] MEDS: FORMOTEROL FUMARATE 20 MCG/2 ML NEBU INHALATION SCH ×2 (08:00→20:28)
--- NOTE | 2018-10-25 10:49 | P.PN ---
Subjective Progress Note Date: 10/25/18 Principal diagnosis: Exacerbation of COPD This is a 78-year-old white male patient who follows with the [facility], with past medical history of advanced COPD, oxygen dependent, usually on 3 L of oxygen per nasal cannula, right and ongoing history of smoking, currently down to 1 pack a day from 2 packs a day for 63 years, history of atrial fibrillation, currently in sinus rhythm, GERD/reflux, hyperlipidemia, prostate disorder, diabetes mellitus, who resides in an adult foster care facility, who came into the emergency department at [facility] for evaluation of increasing shortness of breath, denied any cough, denied any fever or chills, denied any chest pain, or hemoptysis. Patient states he was previously in hospice for 8 months however recently was discharged from hospice, he was then placed in the adult foster senior living where he resided with several other residents and was not happy with the conditions there. He then decided to leave there and he had stayed in his car for over 24 hours before he came into the emergency department. From [facility] she was transferred to [facility], chest x-ray this morning shows chronic parenchymal changes bilaterally without any suspicious new focal airspace opacity, no pleural e ffusion or pneumothorax, blood fragments in the left upper chest stable from previous x-ray. Lab work this morning showed a white blood cell count of 14.9, hemoglobin of 14.6, electrolytes and renal profile within normal limits, proBNP was 714, patient is currently sinus rhythm on the monitor. His maintenance medications include Singulair, and theophylline, I don't see any inhalers or nebulized treatments on his home med list although patient states he is on nebulized treatments which he has been compliant with. His goal exam reveals a overweight male, in mild to moderate amount of respiratory distress, patient has conversational dyspnea, lung sounds are tight and wheezy, patient is currently on 5 L of oxygen. we re consulted for elevation patient shortness of breath. We had previously seen the patient in consultation earlier this month, however patient did not follow-up in outpatient setting On 10/22/2018 patient is seen in follow-up on selective care unit, he sitting up in the chair, in no acute distress, and they have 5 L of oxygen with a pulse ox of 96%, he is afebrile, his breathing easier, less panic with spastic and congested on today's exam compared to yesterday, less tachypneic. No fever or chills, denies able to produce a sputum specimen for us. Continues on nebulized bronchodilators, IV steroids, she started to respond to inpatient treatments. On 10/23/2018 patient seen in follow-up on the [facility] care unit, he is ambulating with physical therapy, 3 L of oxygen, tolerating it fairly well considering his extensive pulmonary disease, quite wheezy, and dyspneic with any exertion, requires frequent rest periods. Lung sounds reveal diffuse wheezes, diminished breath sounds. Overall he states he is feeling better, no fever or chills, hemodynamically stable, he is on home dose O2 at 3 L with a pulse ox of 97%. No new labs, no new chest x-ray. Patient has been treated with empiric antibiotics, IV Solu-Medrol, and nebulized bronchodilators, he is improving. He is requesting to go home today. Currently patient is homeless, and social work is following and patient may need a public guardian appointments and adult protective services involved as the patient had left assisted facility senior living recently, and with his extensive medical needs patient is not able to care for himself. On 10/16/2018 patient seen in follow-up on the [facility] care unit. He sits up in the recliner, in no acute distress, he is breathing easier, his lung sounds better today, less dyspneic, less bronchospastic, end expiratory wheezes on forced exhale maneuver, currently on 3 L of oxygen pulse ox of 98%, no fever or chills, hemodynamically stable, he is on antibiotics, nebulized bronchodilators, and steroids, he is improving. Apparently social work has gotten hold of patient's daughter who resides in [place], and the patient has agreed to travel to [place] be with his daughter. Clinically stable, would be considered for discharge once the flight arrangements are in place On 10/25/2018 patient seen in follow-up. Continues to improve, breathing easier, he is currently on 4 L of oxygen with a pulse ox of 96%, no acute events overnight, no fever or chills, hemodynamically stable, lung sounds reveal some end expiratory wheezes, significantly better since admission, no significant cough or congestion, patient has been tolerating ambulation, he states his niece is working on placement to the [facility] home until he is able to move to [place] to be with his daughter. Objective - Vital Signs Vital signs: Vital Signs Temp 98 F 10/25/18 04:35 Pulse 62 10/25/18 08:26 Resp 20 10/25/18 08:00 BP 107/63 10/25/18 04:35 Pulse Ox 96 10/25/18 08:02 Intake & Output 10/24/18 10/25/18 10/25/18 18:59 06:59 18:59 Intake Total 480 640 Output Total 225 Balance 255 640 Intake: Oral 480 640 Output: Urine 225 Other: Voiding Method Urinal Urinal Urinal # Voids 1 1 - Exam GENERAL EXAM: Alert, 78-year-old obese white male, on 3 L of oxygen, who has mild to moderate dyspnea, comfortable in no apparent distress. HEAD: Normocephalic/atraumatic. EYES: Normal reaction of pupils, equal size. Conjunctiva pink, sclera white. NOSE: Clear with pink turbinates. THROAT: No erythema or exudates. NECK: No masses, no JVD, no thyroid enlargement, no adenopathy. CHEST: No chest wall deformity. Symmetrical expansion. LUNGS: Equal air entry with expiratory wheezes on 460 maneuver, unless bronchospastic compared to admission CVS: Regular rate and rhythm, normal S1 and S2, no gallops, no murmurs, no rubs ABDOMEN: Soft, nontender. No hepatosplenomegaly, normal bowel sounds, no guarding or rigidity. EXTREMITIES: No clubbing, mild edema in lower extremities, no cyanosis, 2+ pulses and upper and lower extremities. MUSCULOSKELETAL: Muscle strength and tone normal. SPINE: No scoliosis or deformity SKIN: No rashes CENTRAL NERVOUS SYSTEM: Alert and oriented -3. No focal deficits, tone is normal in all 4 extremities. PSYCHIATRIC: Alert and oriented -3. Appropriate affect. Intact judgment and insight. - Labs CBC & Chem 7: 10/21/18 06:26 10/24/18 07:46 Labs: Abnormal Lab Results - Last 24 Hours (Table) 10/24/18 10/24/18 10/24/18 Range/Units 11:51 17:10 20:20 POC Glucose (mg/dL) 210 H 140 H 209 H (75-99) mg/dL 10/25/18 Range/Units 07:07 POC Glucose (mg/dL) 202 H (75-99) mg/dL Assessment and Plan Plan: Assessment: #1. Acute exacerbation of COPD, chest x-ray was negative for any acute pulmonary findings #2. History of A. fib, currently in sinus rhythm, not on any anticoagulation #3. History of COPD, severity of which is unknown, oxygen dependent, patient failed to follow-up in outpatient setting #4. Diabetes mellitus type 2 #5. Chronic and ongoing nicotine dependence, currently down to 1 pack a day, previously smoked 2 packs a day for 63 years #6. Obesity #7. Diabetes mellitus Plan: Patient is stable for discharge from pulmonary perspective, on the course of oral prednisone taper, he can finish outpatient course of oral antibiotics, he has oxygen at home, he has a nebulizer machine at home, he can continue on DuoNeb treatments, he can resume Symbicort. Social work is following and working on placement to [facility] home, until the patient is ready to move to [place] to be closer to his daughter I performed a history & physical examination of the patient and discussed their management with my nurse practitioner, Yanci Arteaga. I reviewed the nurse practitioner's note and agree with the documented findings and plan of care. Lung sounds are positive for diffuse wheezes. The findings and the impression was discussed with the patient. I attest to the documentation by the nurse practitioner. Time with Patient: Less than 30
[2018-10-25 12:20] LABS: Glucose,Whole Blood 158 mg/dL (75-99)
[2018-10-25 17:32] LABS: Glucose,Whole Blood 205 mg/dL (75-99)
[2018-10-25 19:26] LABS: Glucose,Whole Blood 158 mg/dL (75-99)
[2018-10-25] MEDS: MELATONIN 5 MG TABLET PO SCH (19:40)
[2018-10-25] MEDS: MONTELUKAST 10 MG TAB PO SCH (19:40)
[2018-10-25] MEDS: MORPHINE SULFATE ER 30 MG TABLET PO SCH (19:40)
[2018-10-25 20:54] LABS: Glucose,Whole Blood 158 mg/dL (75-99)
--- NOTE | 2018-10-26 00:39 | P.PN ---
Subjective Progress Note Date: 10/24/18 Principal diagnosis: Acute COPD exacerbation Patient is a 78 old male with a known history of advanced COPD, hyperlipidemia, GERD and nicotine addiction, chronic hypoxic respiratory failure on home oxygen at 3 L nasal cannula was initially presents to [facility] due to wo rsening shortness of breath. Patient does have chronic cough without any sputum production. Denied any fever or chills. No complaints of chest pain. Patient states he was previously in hospice for 8 months however recently was discharged from hospice, he was then placed in the adult foster [facility] where he resided with several other residents and was not happy with the conditions there. He then decided to leave there and he had stayed in his car for over 24 hours before he came into the emergency department. Patient was transferred to [facility] for further evaluation by nigel ramirez. Patient has not seen any physician recently. Chest x-ray showed chronic parenchymal changes bilaterally without any infiltrate. BNP 714 10/22/2018 Patient says that his breathing is better today. Currently lying in the recliner comfortably. Saturating well on nasal cannula. Otherwise patient is being converted on steroids and breathing treatments and antibiotics. Pulmonary is following. Social work is on board for possible placement. The 2018 Patient is sitting in the chair currently. Denied any worsening shortness of breath or chest pain. Still having exertional dyspnea and not back to baseline. Patient does have underlying advanced COPD. Currently being continued on oxygen via nasal cannula at 3-4 L. Continued on IV steroids and breathing treatments. Pulmonary is on board. Social work is following for possible placement. 10/24/2018 Patient is currently sitting in the chair comfortably. Still having expiratory wheezing otherwise. No fever no chills. No nausea vomiting or abdominal pain. No cough or sputum production. Currently being continued on steroids, breathing treatments and inhaled corticosteroids. Social work is following for placement. Social work was able to patient's daughter in [place]. Arrangement transfer patient with his sister are being made. Current medications reviewed. Objective - Vital Signs Vital signs: Vital Signs Temp 97.9 F 10/24/18 20:32 Pulse 61 10/24/18 20:32 Resp 18 10/24/18 20:32 BP 102/55 10/24/18 20:32 Pulse Ox 95 10/24/18 20:32 Intake & Output 10/24/18 10/24/18 10/25/18 06:59 18:59 06:59 Intake Total 480 240 Output Total 750 225 Balance -750 255 240 Intake: Oral 480 240 Output: Urine 750 225 Other: Voiding Method Urinal # Voids 1 1 - Exam PHYSICAL EXAMINATION: Patient is lying in the bed comfortably, no acute distress, awake alert and oriented.. HEENT: Normocephalic. Neck is supple. Pupils reactive. Nostrils clear. Oral c avity is moist. Ears reveal no drainage. Neck reveals no JVD, carotid bruits, or thyromegaly. CHEST EXAMINATION: Trachea is central. Symmetrical expansion. Mild expiratory wheeze. Bilateral air entry improved. No rhonchi or crackles... CARDIAC: Normal S1, S2 with no gallops. No murmurs ABDOMEN: Soft. Bowel sounds normal. No organomegaly. No abdominal bruits. Extremities: reveal no edema. No clubbing or cyanosis Neurologically awake, alert, oriented x3 with well-coordinated movements. No focal deficits noted Skin: No rash or skin lesions. Psychiatric: Coperative. Nonsuicidal Musculoskeletal: No joint swelling or deformity. Normal range of motion. - Labs CBC & Chem 7: 10/21/18 06:26 10/24/18 07:46 Labs: Abnormal Lab Results - Last 24 Hours (Table) 10/24/18 10/24/18 10/24/18 Range/Units 07:46 11:51 17:10 Carbon Dioxide 36 H (22-30) mmol/L BUN 23 H (9-20) mg/dL POC Glucose (mg/dL) 210 H 140 H (75-99) mg/dL 10/24/18 Range/Units 20:20 Carbon Dioxide (22-30) mmol/L BUN (9-20) mg/dL POC Glucose (mg/dL) 209 H (75-99) mg/dL Assessment and Plan Assessment: Acute exacerbation of COPD Advanced COPD on home oxygen dependent. Was on hospice care previously Chronic hypoxic respiratory failure on home oxygen Diabetes type 2 [id number] Atrial fibrillation paroxysmal not on anticoagulation Ongoing nicotine addiction Obesity with BMI 33.9 DVT prophylaxis with heparin subcu Plan: Patient be continued on IV steroids, DuoNeb's, Pulmicort/Perforomist and oxygen therapy as needed. Continue with theophylline. Continue with antibiotics in the form of doxycycline. Pulmonary is on board. Smoking cessation has been counseled extensively. Prognosis is guarded with multiple medical problems and, conditions. hot blast worker is following regarding discharge planning. Time with Patient: Greater than 30
--- NOTE | 2018-10-26 00:41 | P.PN ---
Subjective Progress Note Date: 10/25/18 Principal diagnosis: Acute COPD exacerbation Patient is a 78 old male with a known history of advanced COPD, hyperlipidemia, GERD and nicotine addiction, chronic hypoxic respiratory failure on home oxygen at 3 L nasal cannula was initially presents to [facility] due to wo rsening shortness of breath. Patient does have chronic cough without any sputum production. Denied any fever or chills. No complaints of chest pain. Patient states he was previously in hospice for 8 months however recently was discharged from hospice, he was then placed in the adult foster [facility] where he resided with several other residents and was not happy with the conditions there. He then decided to leave there and he had stayed in his car for over 24 hours before he came into the emergency department. Patient was transferred to [facility] for further evaluation by nigel ramirez. Patient has not seen any physician recently. Chest x-ray showed chronic parenchymal changes bilaterally without any infiltrate. BNP 714 10/22/2018 Patient says that his breathing is better today. Currently lying in the recliner comfortably. Saturating well on nasal cannula. Otherwise patient is being converted on steroids and breathing treatments and antibiotics. Pulmonary is following. Social work is on board for possible placement. The 2018 Patient is sitting in the chair currently. Denied any worsening shortness of breath or chest pain. Still having exertional dyspnea and not back to baseline. Patient does have underlying advanced COPD. Currently being continued on oxygen via nasal cannula at 3-4 L. Continued on IV steroids and breathing treatments. Pulmonary is on board. Social work is following for possible placement. 10/24/2018 Patient is currently sitting in the chair comfortably. Still having expiratory wheezing otherwise. No fever no chills. No nausea vomiting or abdominal pain. No cough or sputum production. Currently being continued on steroids, breathing treatments and inhaled corticosteroids. Social work is following for placement. Social work was able to patient's daughter in [place]. Arrangement transfer patient with his sister are being made. 10/25/2018 Patient is sitting in the chair now and is breathing comfortably. No Fever no chills. Currently saturating well on oxygen via nasal cannula. Hemodynamically stable. Clinically improving. Social work is following. Current medications reviewed. Objective - Vital Signs Vital signs: Vital Signs Temp 97.0 F L 10/25/18 19:51 Pulse 66 10/25/18 23:21 Resp 18 10/25/18 23:21 BP 108/61 10/25/18 19:51 Pulse Ox 95 10/25/18 19:51 Intake & Output 10/25/18 10/25/18 10/26/18 06:59 18:59 06:59 Intake Total 640 1290 Balance 640 1290 Intake: Oral 640 1290 Other: Voiding Method Urinal Urinal Urinal # Voids 1 1 - Exam PHYSICAL EXAMINATION: Patient is lying in the bed comfortably, no acute distress, awake alert and or iented.. HEENT: Normocephalic. Neck is supple. Pupils reactive. Nostrils clear. Oral cavity is moist. Ears reveal no drainage. Neck reveals no JVD, carotid bruits, or thyromegaly. CHEST EXAMINATION: Trachea is central. Symmetrical expansion. Mild expiratory wheeze. Bilateral air entry improved. No rhonchi or crackles... CARDIAC: Normal S1, S2 with no gallops. No murmurs ABDOMEN: Soft. Bowel sounds normal. No organomegaly. No abdominal bruits. Extremities: reveal no edema. No clubbing or cyanosis Neurologically awake, alert, oriented x3 with well-coordinated movements. No focal deficits noted Skin: No rash or skin lesions. Psychiatric: Coperative. Nonsuicidal Musculoskeletal: No joint swelling or deformity. Normal range of motion. - Labs CBC & Chem 7: 10/21/18 06:26 10/24/18 07:46 Labs: Abnormal Lab Results - Last 24 Hours (Table) 10/25/18 10/25/18 10/25/18 Range/Units 07:07 12:18 17:12 POC Glucose (mg/dL) 202 H 158 H 205 H (75-99) mg/dL 10/25/18 10/25/18 Range/Units 19:24 20:49 POC Glucose (mg/dL) 158 H 158 H (75-99) mg/dL Assessment and Plan Assessment: Acute exacerbation of COPD Advanced COPD on home oxygen dependent. Was on hospice care previously Chronic hypoxic respiratory failure on home oxygen Diabetes type 2 [id number] Atrial fibrillation paroxysmal not on anticoagulation Ongoing nicotine addiction Obesity with BMI 33.9 DVT prophylaxis with heparin subcu Plan: Patient be continued on IV steroids, DuoNeb's, Pulmicort/Perforomist and oxygen therapy as needed. Continue with theophylline. Continue with antibiotics in the form of doxycycline. Pulmonary is on board. Smoking cessation has been counseled extensively. Prognosis is guarded with multiple medical problems and, conditions. mat worker is following regarding discharge planning. Time with Patient: Greater than 30
[2018-10-26] MEDS: NITROGLYCERIN SL TABS 0.4 MG TAB SUBLINGUAL PRN ×2 (01:04→01:16)
[2018-10-26] MEDS: ALPRAZolam 0.25 MG TAB PO PRN (01:37)
[2018-10-26] MEDS: IPRATROPIUM-ALBUTEROL 3 ML NEB INHALATION SCH ×6 (03:35→23:07)
[2018-10-26 07:24] LABS: Glucose,Whole Blood 219 mg/dL (75-99)
[2018-10-26] MEDS: BUDESONIDE 1 MG/2 ML NEBU INHALATION SCH ×2 (07:46→19:10)
[2018-10-26] MEDS: CITALOPRAM HYDROBROMIDE 10 MG TAB PO SCH (07:51)
[2018-10-26] MEDS: POLYETHYLENE GLYCOL 3350 17 GM POWD.PACK PO SCH (07:51)
[2018-10-26] MEDS: INSULIN ASPART (NovoLOG) 100 UNIT/ML VIAL SQ SCH ×4 (07:51→21:20)
[2018-10-26] MEDS: metFORMIN 500 MG TAB PO SCH ×2 (07:51→17:16)
[2018-10-26] MEDS: HEPARIN SODIUM,PORCINE 5,000 UNIT/ML 1 ML VIAL SQ SCH ×2 (07:51→16:22)
[2018-10-26] MEDS: POTASSIUM CHLORIDE ER 10 MEQ TAB.ER.PRT PO SCH (07:52)
[2018-10-26] MEDS: THEOPHYLLINE 24 HOUR 400 MG CAP.ER.24H PO SCH (07:52)
[2018-10-26] MEDS: MORPHINE SULFATE ER 15 MG TABLET PO SCH (07:52)
[2018-10-26] MEDS: TAMSULOSIN 0.4 MG CAP.ER.24H PO SCH (07:52)
[2018-10-26] MEDS: ATORVASTATIN 40 MG TAB PO SCH (07:52)
[2018-10-26] MEDS: MIDODRINE 5 MG TAB PO SCH ×2 (07:52→16:19)
[2018-10-26] MEDS: DOXYCYCLINE 100 MG in SODIUM CHLORIDE 0.9% 100 ML IVPB SCH (07:53)
[2018-10-26] MEDS: FAMOTIDINE 20 MG TAB PO SCH ×2 (07:53→20:19)
[2018-10-26] MEDS: ISOSORBIDE MONONITRATE ER 30 MG TAB.ER.24H PO SCH (07:53)
[2018-10-26] MEDS: DOCUSATE 100 MG CAP PO SCH (07:53)
[2018-10-26] MEDS: MAGNESIUM HYDROXIDE 2,400 MG/10 ML CUP PO SCH (07:53)
[2018-10-26] MEDS: FUROSEMIDE 40 MG TAB PO SCH (07:53)
[2018-10-26] MEDS: ASPIRIN 81 MG PO SCH (07:53)
[2018-10-26] MEDS: METOPROLOL TARTRATE 50 MG TAB PO SCH ×2 (07:53→20:19)
[2018-10-26] MEDS: methylPREDNISolone SOD SUCCI 125 MG/2 ML VIAL IV SCH (07:55)
[2018-10-26] MEDS: FORMOTEROL FUMARATE 20 MCG/2 ML NEBU INHALATION SCH ×2 (08:02→19:10)
--- NOTE | 2018-10-26 11:34 | P.PN ---
Subjective Progress Note Date: 10/26/18 Principal diagnosis: Acute exacerbation of chronic obstructive pulmonary disease. The patient is seen today 10/26/2018 in follow-up on the regular medical floor. He is currently sitting up in a chair at the bedside. He is awake and alert in no acute distress. He is breathing easier today as compared to yesterday. Maintaining O2 saturations in the mid 90s on 3 L/m per nasal cannula. He has been afebrile. Hemodynamically stable. He is continued on DuoNeb inhalations, Pulmicort and Perforomist inhalations, oral prednisone, Singulair and theophylline. Antibiotics in the form of doxycycline. Objective - Vital Signs Vital signs: Vital Signs Temp 97.8 F 10/26/18 07:00 Pulse 66 10/26/18 11:19 Resp 18 10/26/18 08:09 BP 115/71 10/26/18 07:00 Pulse Ox 95 10/26/18 07:46 Intake & Output 10/25/18 10/26/18 10/26/18 18:59 06:59 18:59 Intake Total 1290 450 Balance 1290 450 Intake: Oral 1290 450 Other: Voiding Method Urinal Urinal # Voids 1 2 - Exam GENERAL EXAM: Alert, pleasant 78-year-old gentleman, on 3 L of oxygen, who has mild dyspnea, comfortable in no apparent distress. HEAD: Normocephalic/atraumatic. EYES: Normal reaction of pupils, equal size. Conjunctiva pink, sclera white. NOSE: Clear with pink turbinates. THROAT: No erythema or exudates. NECK: No masses, no JVD, no thyroid enlargement, no adenopathy. CHEST: No chest wall deformity. Symmetrical expansion. LUNGS: Equal air entry with faint end expiratory wheeze. Diminished. CVS: Regular rate and rhythm, normal S1 and S2, no gallops, no murmurs, no rubs ABDOMEN: Soft, nontender. No hepatosplenomegaly, normal bowel sounds, no guarding or rigidity. EXTREMITIES: No clubbing, mild edema in lower extremities, no cyanosis, 2+ pulses and upper and lower extremities. MUSCULOSKELETAL: Muscle strength and tone normal. SPINE: No scoliosis or deformity SKIN: No rashes CENTRAL NERVOUS SYSTEM: No focal deficits, tone is normal in all 4 extremities. PSYCHIATRIC: Alert and oriented -3. Appropriate affect. Intact judgment and insight. - Labs CBC & Chem 7: 10/21/18 06:26 10/24/18 07:46 Labs: Abnormal Lab Results - Last 24 Hours (Table) 10/25/18 10/25/18 10/25/18 Range/Units 12:18 17:12 19:24 POC Glucose (mg/dL) 158 H 205 H 158 H (75-99) mg/dL 10/25/18 10/26/18 Range/Units 20:49 07:22 POC Glucose (mg/dL) 158 H 219 H (75-99) mg/dL Assessment and Plan Assessment: Impression: #1. Acute exacerbation of COPD, chest x-ray was negative for any acute pulmonary findings #2. History of A. fib, currently in sinus rhythm, not on any anticoagulation #3. History of COPD, severity of which is unknown, oxygen dependent, patient failed to follow-up in outpatient setting #4. Diabetes mellitus type 2 #5. Chronic and ongoing nicotine dependence, currently down to 1 pack a day, previously smoked 2 packs a day for 63 years #6. Obesity #7. Diabetes mellitus Plan: The patient was seen and evaluated by Dr. Luther. He is currently back to his baseline as far as his COPD is concerned. Upon discharge she'll continue with his nebulized treatment. Continue Symbicort. Complete course of prednisone taper. The plan is to move to [place] to be near his daughter. We'll see him on an as-needed basis. I, the cosigning physician, performed a history & physical examination of the patient. Lungs sounds with faint end expiratory wheeze, diminished. Maintaining good O2 saturations in the 90s on 3 L/m per nasal cannula. I discussed the assessment and plan of care with my nurse practitioner, Lydia Llamas. I attest to the above note as dictated by her.
[2018-10-26 12:06] LABS: Glucose,Whole Blood 84 mg/dL (75-99)
[2018-10-26] MEDS: predniSONE 20 MG TAB PO SCH (12:06)
[2018-10-26] MEDS: DOXYCYCLINE 100 MG CAP PO SCH ×2 (12:06→20:18)
[2018-10-26 14:44] VITALS: BMI 33.5
[2018-10-26 17:05] LABS: Glucose,Whole Blood 185 mg/dL (75-99)
[2018-10-26] MEDS: PROMETHAZINE 25 MG TAB PO PRN (17:13)
[2018-10-26] MEDS: MORPHINE SULFATE ER 30 MG TABLET PO SCH (20:18)
[2018-10-26] MEDS: MELATONIN 5 MG TABLET PO SCH (20:19)
[2018-10-26] MEDS: traZODone HCL 50 MG TAB PO PRN (20:19)
[2018-10-26] MEDS: MONTELUKAST 10 MG TAB PO SCH (20:19)
[2018-10-26 21:04] LABS: Glucose,Whole Blood 222 mg/dL (75-99)
[2018-10-27] MEDS: HEPARIN SODIUM,PORCINE 5,000 UNIT/ML 1 ML VIAL SQ SCH ×4 (00:10→23:26)
--- NOTE | 2018-10-27 01:19 | P.PN ---
Subjective Progress Note Date: 10/26/18 Principal diagnosis: Acute COPD exacerbation Patient is a 78 old male with a known history of advanced COPD, hyperlipidemia, GERD and nicotine addiction, chronic hypoxic respiratory failure on home oxygen at 3 L nasal cannula was initially presents to [facility] due to wo rsening shortness of breath. Patient does have chronic cough without any sputum production. Denied any fever or chills. No complaints of chest pain. Patient states he was previously in hospice for 8 months however recently was discharged from hospice, he was then placed in the adult foster skilled nursing where he resided with several other residents and was not happy with the conditions there. He then decided to leave there and he had stayed in his car for over 24 hours before he came into the emergency department. Patient was transferred to [facility] for further evaluation by nigel ramirez. Patient has not seen any physician recently. Chest x-ray showed chronic parenchymal changes bilaterally without any infiltrate. BNP 714 10/22/2018 Patient says that his breathing is better today. Currently lying in the recliner comfortably. Saturating well on nasal cannula. Otherwise patient is being converted on steroids and breathing treatments and antibiotics. Pulmonary is following. Social work is on board for possible placement. The 2018 Patient is sitting in the chair currently. Denied any worsening shortness of breath or chest pain. Still having exertional dyspnea and not back to baseline. Patient does have underlying advanced COPD. Currently being continued on oxygen via nasal cannula at 3-4 L. Continued on IV steroids and breathing treatments. Pulmonary is on board. Social work is following for possible placement. 10/24/2018 Patient is currently sitting in the chair comfortably. Still having expiratory wheezing otherwise. No fever no chills. No nausea vomiting or abdominal pain. No cough or sputum production. Currently being continued on steroids, breathing treatments and inhaled corticosteroids. Social work is following for placement. Social work was able to patient's daughter in [place]. Arrangement transfer patient with his sister are being made. 10/25/2018 Patient is sitting in the chair now and is breathing comfortably. No Fever no chills. Currently saturating well on oxygen via nasal cannula. Hemodynamically stable. Clinically improving. Social work is following. 10/09/2017 Patient is currently sitting in the chair comfortably. Currently saturating well on 3 at another cannula oxygen. Hemodynamically stable. Anticipate discharge in next 24-48 hours. Breathing status is improving but still having expiratory wheezing and scattered rhonchi. Pulmonary is on board. Social work is following for possible discharge him home to stay with his sister in [place]. Current medications reviewed. Objective - Vital Signs Vital signs: Vital Signs Temp 98.5 F 10/26/18 20:58 Pulse 68 10/26/18 20:58 Resp 18 10/26/18 20:58 BP 113/64 10/26/18 20:58 Pulse Ox 95 10/26/18 20:58 Intake & Output 10/26/18 10/26/18 10/27/18 06:59 18:59 06:59 Intake Total 450 Output Total 1500 300 Balance 450 -1500 -300 Weight 112.3 kg Intake: Oral 450 Output: Urine 1500 300 Other: Voiding Method Urinal # Voids 2 - Exam PHYSICAL EXAMINATION: Patient is lying in the bed comfortably, no acute distress, awake alert and oriented.. HEENT: Normocephalic. Neck is supple. Pupils reactive. Nostrils clear. Oral cavity is moist. Ears reveal no drainage. Neck reveals no JVD, carotid bruits, or thyromegaly. CHEST EXAMINATION: Trachea is central. Symmetrical expansion. Mild expiratory wheeze. Bilateral air entry improved. No rhonchi or crackles... CARDIAC: Normal S1, S2 with no gallops. No murmurs ABDOMEN: Soft. Bowel sounds normal. No organomegaly. No abdominal bruits. Extremities: reveal no edema. No clubbing or cyanosis Neurologically awake, alert, oriented x3 with well-coordinated movements. No focal deficits noted Skin: No rash or skin lesions. Psychiatric: Coperative. Nonsuicidal Musculoskeletal: No joint swelling or deformity. Normal range of motion. - Labs CBC & Chem 7: 10/21/18 06:26 10/24/18 07:46 Labs: Abnormal Lab Results - Last 24 Hours (Table) 10/26/18 10/26/18 10/26/18 Range/Units 07:22 16:59 21:00 POC Glucose (mg/dL) 219 H 185 H 222 H (75-99) mg/dL Assessment and Plan Assessment: Acute exacerbation of COPD Advanced COPD on home oxygen dependent. Was on hospice care previously Chronic hypoxic respiratory failure on home oxygen Diabetes type 2 [id number] Atrial fibrillation paroxysmal not on anticoagulation Ongoing nicotine addiction Obesity with BMI 33.9 DVT prophylaxis with heparin subcu Plan: Patient be continued on IV steroids, DuoNeb's, Pulmicort/Perforomist and oxygen therapy as needed. Continue with theophylline. Continue with antibiotics in the form of doxycycline. Pulmonary is on board. Smoking cessation has been counseled extensively. Prognosis is guarded with multiple medical problems and, conditions. delinquency prevention social worker is following regarding discharge planning. Time with Patient: Greater than 30
[2018-10-27] MEDS: IPRATROPIUM-ALBUTEROL 3 ML NEB INHALATION SCH ×6 (03:06→23:28)
[2018-10-27 07:11] LABS: Glucose,Whole Blood 108 mg/dL (75-99)
[2018-10-27] MEDS: INSULIN ASPART (NovoLOG) 100 UNIT/ML VIAL SQ SCH ×4 (07:36→21:08)
[2018-10-27] MEDS: THEOPHYLLINE 24 HOUR 400 MG CAP.ER.24H PO SCH (07:36)
[2018-10-27] MEDS: DOXYCYCLINE 100 MG CAP PO SCH ×2 (07:37→21:08)
[2018-10-27] MEDS: DOCUSATE 100 MG CAP PO SCH (07:37)
[2018-10-27] MEDS: TAMSULOSIN 0.4 MG CAP.ER.24H PO SCH (07:37)
[2018-10-27] MEDS: POTASSIUM CHLORIDE ER 10 MEQ TAB.ER.PRT PO SCH (07:37)
[2018-10-27] MEDS: CITALOPRAM HYDROBROMIDE 10 MG TAB PO SCH (07:37)
[2018-10-27] MEDS: predniSONE 20 MG TAB PO SCH (07:37)
[2018-10-27] MEDS: ASPIRIN 81 MG PO SCH (07:37)
[2018-10-27] MEDS: FUROSEMIDE 40 MG TAB PO SCH (07:37)
[2018-10-27] MEDS: FAMOTIDINE 20 MG TAB PO SCH ×2 (07:38→21:07)
[2018-10-27] MEDS: MAGNESIUM HYDROXIDE 2,400 MG/10 ML CUP PO SCH (07:38)
[2018-10-27] MEDS: ISOSORBIDE MONONITRATE ER 30 MG TAB.ER.24H PO SCH (07:38)
[2018-10-27] MEDS: MIDODRINE 5 MG TAB PO SCH ×2 (07:38→16:51)
[2018-10-27] MEDS: METOPROLOL TARTRATE 50 MG TAB PO SCH ×2 (07:38→21:08)
[2018-10-27] MEDS: metFORMIN 500 MG TAB PO SCH ×2 (07:38→16:51)
[2018-10-27] MEDS: POLYETHYLENE GLYCOL 3350 17 GM POWD.PACK PO SCH (07:39)
[2018-10-27] MEDS: MORPHINE SULFATE ER 15 MG TABLET PO SCH (07:39)
[2018-10-27] MEDS: ATORVASTATIN 40 MG TAB PO SCH (07:43)
[2018-10-27] MEDS: BUDESONIDE 1 MG/2 ML NEBU INHALATION SCH ×2 (07:55→19:21)
[2018-10-27] MEDS: FORMOTEROL FUMARATE 20 MCG/2 ML NEBU INHALATION SCH ×2 (07:55→19:21)
[2018-10-27 11:45] LABS: Glucose,Whole Blood 111 mg/dL (75-99)
[2018-10-27 15:12] VITALS: RESP 18
[2018-10-27 16:42] LABS: Glucose,Whole Blood 222 mg/dL (75-99)
[2018-10-27] MEDS ORDERED: ACETAMINOPHEN TAB 325 MG TAB PO PRN (16:43)
[2018-10-27 20:57] LABS: Glucose,Whole Blood 129 mg/dL (75-99)
[2018-10-27] MEDS: MELATONIN 5 MG TABLET PO SCH (21:07)
[2018-10-27] MEDS: MORPHINE SULFATE ER 30 MG TABLET PO SCH (21:11)
[2018-10-27] MEDS: MONTELUKAST 10 MG TAB PO SCH (21:12)
[2018-10-27] MEDS: traZODone HCL 50 MG TAB PO PRN (21:14)
[2018-10-27] MEDS: ALPRAZolam 0.25 MG TAB PO PRN (23:13)
[2018-10-28] MEDS: IPRATROPIUM-ALBUTEROL 3 ML NEB INHALATION SCH (04:11)
[2018-10-28 05:35] VITALS: BP 111/68; PULSE 56; TEMP 97.8
--- NOTE | 2018-10-28 08:58 | DS ---
DISCHARGE SUMMARY FINAL DIAGNOSES: 1. Chronic obstructive pulmonary disease acute exacerbation. 2. Acute hypoxic hypercarbic respiratory failure, present on admission. 3. Acute marquez tracheobronchitis. 4. Diabetes mellitus type 2, noninsulin dependent. 5. Atrial fibrillation, paroxysmal, not on anticoagulation. 6. Ongoing nicotine dependence. 7. Obesity, body mass of 33.9. 8. NO CODE NO CPR NO VENT. DISCHARGE DISPOSITION: The patient is discharged in stable condition. Guarded prognosis. Total time taken 35 minutes. HISTORY OF PRESENT ILLNESS: This 78-year-old gentleman with past medical of multiple medical issues was admitted with COPD acute exacerbation and as well as acute hypoxic respiratory failure. Treated symptomatically along with Dr. Luther. Patient improved significantly. Cardiology also saw the patient. On exam, vitals are stable. CARDIOVASCULAR: S1, S2. RESPIRATORY: Diminished breath sounds at the bases. A few scattered rhonchi. ABDOMEN: Soft, nontender. Otherwise, the Case Management Team worked on the patient. At this time the patient will be going to his daughter in [place]. Overall stable but the prognosis extremely guarded. Please also note the patient was previously in hospice. Discharge diet is cardiac diet. Follow up with primary physician. DISCHARGE MEDICATION: 1. Colace 100 mg. 2. Eliquis 5 mg p.o. b.i.d. 3. Flomax 0.4 daily. 4. Isosorbide dinitrate 30 mg daily. 5. K-Dur. ER 10 mg daily 7. Lasix 40 mg. 8. Lopressor 50 mg p.o. b.i.d. 9. Metformin 500 mg p.o. b.i.d. 10.Milk of magnesia 400 mg p.o. 11.MS Contin 40 mg q.a.m. and 60 mg q.h.s. 12.Nitrostat 0.4 mg p.r.n. 13.Pepcid 20 mg p.o. b.i.d. 14.Prednisone 10 mg p.o. daily. 15.ProAmatine 5 mg p.o. b.i.d. 16.Deni-24 800 mg p.o. daily. 17.Trazodone 50 mg q.h.s. p.r.n. 18.Aspirin 81 mg p.o. daily. 19.Celexa 10 mg p.o. daily. 20.DuoNeb q.i.d. and p.r.n. 21.Lipitor 40 mg. 22.MiraLAX 17 g p.o. daily. 23.Prednisone is on the taper 40 mg daily for 2 days, 30 for 3 days, 20 for 3 days, 10 for 3 days and then stop. 24.ProAir HFA p.r.n. 25.( ) 0.7 mg q.h.s. 26.Singulair 10 mg q.h.s. 27.Home O2 be to be continued. 28.Symbicort 160/4.5 two puffs b.i.d. 29.Deni-24 81 mg p.o. med p.o. daily. 30.Vibramycin 100 mg p.o. daily mg b.i.d. for 3 days. 31.Xanax 0.5 p.o. t.i.d. p.r.n. TRELL / KALEN: [id number] / MTDD
== END 2018-10-28 05:30 | disposition home or self-care (01) | DRG 190 ==
LOC: 3SCARD 21:28 → 4MS4W 10-24 19:16
PROVIDERS: ADMIT Internal Medicine; ATTEND Internal Medicine
DX: J44.1 Chronic obstructive pulmonary disease with (acute) exacerbation (principal); J96.21 Acute and chronic respiratory failure with hypoxia; J96.22 Acute and chronic respiratory failure with hypercapnia; J44.0 Chronic obstructive pulmonary disease with (acute) lower respiratory infection; K21.9 Gastro-esophageal reflux disease without esophagitis; I48.0 Paroxysmal atrial fibrillation; I45.10 Unspecified right bundle-branch block; F17.200 Nicotine dependence, unspecified, uncomplicated; E66.9 Obesity, unspecified; J20.9 Acute bronchitis, unspecified; E78.5 Hyperlipidemia, unspecified; E11.9 Type 2 diabetes mellitus without complications; I10 Essential (primary) hypertension; N42.9 Disorder of prostate, unspecified; Z68.33 Body mass index [BMI] 33.0-33.9, adult; Z79.01 Long term (current) use of anticoagulants; Z79.82 Long term (current) use of aspirin; Z79.84 Long term (current) use of oral hypoglycemic drugs; Z79.899 Other long term (current) drug therapy; Z99.81 Dependence on supplemental oxygen; Z91.048 Other nonmedicinal substance allergy status
CPT/HCPCS: 71045; 80048; 80053; 83880; 84484; 85027; 93005; 93306; 94640; 94760